=== PATIENT | female | born 1940 | race Caucasian/White ===

== ENCOUNTER → 2017-05-26 | Outpatient (CLI) | payer MEDICARE, OTHER ==
--- NOTE | 2017-05-27 09:29 | MM ---
Reason for exam: screening (asymptomatic). Last mammogram was performed 1 year and 4 months ago. History: Patient is postmenopausal and is nulliparous. Physical Findings: A clinical breast exam by your physician is recommended on an annual basis and results should be correlated with mammographic findings. MG Screening Mammo w CAD Bilateral CC and MLO view(s) were taken. Prior study comparison: January 18, 2015, bilateral MG screening mammo w CAD. October 31, 2013, bilateral MG screening mammo w CAD. October 12, 2012, bilateral digital screening mammo w/CAD. The breast tissue is heterogeneously dense. This may lower the sensitivity of mammography. Finding: There are typically benign round calcifications in the right breast. Previous mammotome biopsy in the left breast. There is no discrete abnormality. ASSESSMENT: Benign, BI-RAD 2 RECOMMENDATION: Routine screening mammogram of both breasts in 1 year.
== END ==
LOC: RADMAMWWP 14:25
PROVIDERS: ATTEND Family Medicine
DX: Z12.31 Encounter for screening mammogram for malignant neoplasm of breast (principal)
CPT/HCPCS: 77067

== ENCOUNTER → 2018-09-09 | Outpatient (CLI) | payer MEDICARE, OTHER ==
--- NOTE | 2018-09-09 19:06 | BD ---
EXAMINATION TYPE: Axial Bone Density DATE OF EXAM: 09/09/2018 COMPARISON: 02.27.2014 CLINICAL HISTORY: 77 YR OLD FEMALE....ICD-10 CODE: M81.0 OSTEOPOROSIS, Z78.0 POST MENOPAUSAL Height: 57 Weight: 94 FRAX RISK QUESTIONS: Glucocorticoids (More than 3mos): FOR ALLERGIES ONLY (Ex: prednisone, prednisolone, methylprednisolone, dexamethasone, and hydrocortisone). Current Tobacco Use: QUIT 10 YRS AGO RISK FACTORS HISTORY OF: HX OF FRACTURES X3....BUT ALL BEFORE THE AGE OF 49 Family History of Osteoporosis: NONE KNOWN Active: YES Postmenopausal woman: 49 YRS OLD HORMONES IN PAST FOR ABOUT 5 YRS....NONE NOW Lost more than 2 inches in height since high school: YES MEDICATIONS: Prednisone or other steroids: FLONASE FOR ALLERGIES FOR MANY YRS Osteoporosis Medications: PROLIA INJECTIONS 2X YEARLY, FOR ABOUT 6 YRS Additional Medications: LIPITOR, DRINK ENSURE FOR VITAMINS Additional History: OSTEOPOROSIS, CHOLESTEROL EXAM MEASUREMENTS: Bone mineral densitometry was performed using the [email or web address] System. Bone mineral density as measured about the Lumbar spine is: ----- L1-L4(G/cm2): 0.852 T Score Values are as follows: ----- L1: -2.8 ----- L2: -3.1 ----- L3: -2.4 ----- L4: -2.8 ----- L1-L4: -2.7 Bone mineral density has: Increased 8.8% since study of: 02.27.2014 Bone mineral density about the R hip (g/cm2): 0.607 Bone mineral density about the L hip (g/cm2): 0.586 T Score values are as follows: -----R Neck: -2.9 -----L Neck: -3.0 -----R Total: -3.2 -----L Total: -3.2 Bone mineral density has: Increased 4.9% since study of: 02.27.2014 FRAX%s: THERE IS A 29.7% CHANCE FOR A MAJOR OSTEOPOROTIC FX AND A 14.2% FOR A HIP.....PROBABILITY OF FX IN 10 YRS TIME IMPRESSION: Osteoporosis (T Score less than -2.5). There is increased fracture risk and therapy is usually indicated based on age. Re-Screen 1-2 years. NOTE: T-SCORE=SD OF THE YOUNG ADULT MEAN.
== END | disposition home or self-care (01) ==
LOC: RADBDWWP 07:11
PROVIDERS: ATTEND Internal Medicine
DX: M81.0 Age-related osteoporosis without current pathological fracture (principal); Z88.0 Allergy status to penicillin
CPT/HCPCS: 77080

== ENCOUNTER → 2018-10-07 | Outpatient (CLI) | payer MEDICARE, OTHER ==
--- NOTE | 2018-10-08 08:54 | MM ---
Reason for exam: screening (asymptomatic). Last mammogram was performed 1 year and 4 months ago. History: Patient is postmenopausal and is nulliparous. Physical Findings: A clinical breast exam by your physician is recommended on an annual basis and results should be correlated with mammographic findings. MG 3D Screening Mammo W/Cad Bilateral CC and MLO view(s) were taken. Prior study comparison: May 26, 2017, bilateral MG screening mammo w CAD. January 30, 2016, bilateral MG 3d screening mammo w/cad. There are scattered fibroglandular densities. There is no discrete abnormality. No significant changes when compared with prior studies. ASSESSMENT: Negative, BI-RAD 1 RECOMMENDATION: Routine screening mammogram of both breasts in 1 year.
== END | disposition home or self-care (01) ==
LOC: RADMAMWWP 16:29
PROVIDERS: ATTEND Family Medicine
DX: Z12.31 Encounter for screening mammogram for malignant neoplasm of breast (principal); Z90.12 Acquired absence of left breast and nipple
CPT/HCPCS: 77063; 77067

== ENCOUNTER → 2020-03-06 | Outpatient (CLI) | payer MEDICARE, OTHER ==
--- NOTE | 2020-03-06 21:01 | US ---
EXAMINATION TYPE: US venous doppler duplex LE RT DATE OF EXAM: 03/06/2020 4:16 PM COMPARISON: NONE CLINICAL HISTORY: M79.661 PAIN RT LOWER LIMB,R22.41 SWELLING RT LOWER LIMB. Leg swelling and pain saray t has decreased since she has been on medication, no h/o DVT SIDE PERFORMED: Right TECHNIQUE: The lower extremity deep venous system is examined utilizing real time linear array sonog cordell with graded compression, doppler sonography and color-flow sonography. VESSELS IMAGED: External Iliac Vein (EIV) Common Femoral Vein Deep Femoral Vein Greater Saphenous Vein * Femoral Vein Popliteal Vein Small Saphenous Vein * Proximal Calf Veins (* superficial vessels) Right Leg: Negative for deep venous thrombosis. There is normal flow, compressibility, vascular wave forms. IMPRESSION: No DVT of the right lower extremity.
== END | disposition home or self-care (01) ==
LOC: RADUSWWP 15:53
PROVIDERS: ATTEND Internal Medicine
DX: M79.661 Pain in right lower leg (principal); R22.41 Localized swelling, mass and lump, right lower limb; Z88.0 Allergy status to penicillin

== ENCOUNTER → 2020-03-16 | Outpatient (CLI) | payer MEDICARE, OTHER ==
--- NOTE | 2020-03-19 08:30 | MM ---
Reason for exam: screening (asymptomatic). Last mammogram was performed 1 year and 5 months ago. History: Patient is postmenopausal and is nulliparous. Physical Findings: A clinical breast exam by your physician is recommended on an annual basis and results should be correlated with mammographic findings. MG 3D Screening Mammo W/Cad Bilateral CC and MLO view(s) were taken. XCCL view(s) were taken of the right breast. Prior study comparison: October 07, 2018, bilateral MG 3d screening mammo w/cad. May 26, 2017, bilateral MG screening mammo w CAD. The breast tissue is heterogeneously dense. This may lower the sensitivity of mammography. Benign appearing calcifications in the right breast. No significant changes when compared with prior studies. ASSESSMENT: Benign, BI-RAD 2 RECOMMENDATION: Routine screening mammogram of both breasts in 1 year.
== END | disposition home or self-care (01) ==
LOC: RADMAMWWP 09:45
PROVIDERS: ATTEND Internal Medicine
DX: Z12.31 Encounter for screening mammogram for malignant neoplasm of breast (principal)
CPT/HCPCS: 77063; 77067

== ENCOUNTER 2020-03-18 12:14 | Inpatient (IN) | payer MEDICARE, OTHER ==
[2020-03-18] MEDS ORDERED: SODIUM CHLORIDE 0.9% 500 ML 500 ML IV STA (12:32)
--- NOTE | 2020-03-18 12:35 | ED ---
General Adult HPI - General Chief complaint: Nausea/Vomiting/Diarrhea Stated complaint: NVD Time Seen by Provider: 03/18/20 12:24 Source: patient, EMS, RN notes reviewed, old records reviewed Mode of arrival: EMS Limitations: no limitations - History of Present Illness Initial comments: 79-year-old female presenting with 2 days of nausea vomiting and diarrhea Patient states her diarrhea is watery yellow in color. No rectal bleeding. No fever. Patient completed antibiotics on Thursday which was 2 days ago for a right lower extremity cellulitis. She states that on Thursday she began having vomiting and diarrhea. She's had greater than 10 episodes of vomiting. She has not been able to eat or drink secondary to nausea vomiting. She denies fever. She denies significant abdominal pain. - Related Data Allergies Allergy/AdvReac Type Severity Reaction Status Date / Time Penicillins Allergy Rash/Hives Verified 03/18/20 12:23 Review of Systems ROS Statement: Those systems with pertinent positive or pertinent negative responses have been documented in the HPI. ROS Other: All systems not noted in ROS Statement are negative. Past Medical History Past Medical History: Hyperlipidemia History of Any Multi-Drug Resistant Organisms: None Reported Past Surgical History: Tonsillectomy Past Psychological History: No Psychological Hx Reported Smoking Status: Never smoker Past Alcohol Use History: Occasional Past Drug Use History: None Reported General Exam Limitations: no limitations General appearance: alert, in no apparent distress Head exam: Present: atraumatic, normocephalic Eye exam: Present: normal appearance, PERRL ENT exam: Present: mucous membranes dry Neck exam: Present: normal inspection. Absent: tenderness, meningismus Respiratory exam: Present: normal lung sounds bilaterally. Absent: respiratory distress, wheezes Cardiovascular Exam: Present: regular rate, normal rhythm GI/Abdominal exam: Present: soft. Absent: distended, tenderness, guarding, rebound Extremities exam: Present: normal inspection, normal capillary refill Neurological exam: Present: alert, oriented X3, CN II-XII intact. Absent: motor sensory deficit Psychiatric exam: Present: normal affect, normal mood Skin exam: Present: warm, dry, intact, other (right lower extremity shows mild erythema, well-healed, no signs of current cellulitis, no induration). Absent: cyanosis, diaphoretic Course Vital Signs 03/18/20 03/18/20 03/18/20 12:17 12:24 14:23 Temperature 97.1 F L 97.3 F L Pulse Rate 65 63 Respiratory 18 16 Rate Blood Pressure 138/94 145/64 O2 Sat by Pulse 98 98 Oximetry EKG Findings - EKG Comments: EKG Findings:: EKG: Sinus bradycardia, rate of 57, ME interval 150, QRS duration 76, QTC [address] segment elevation. T-wave inversion in V2 and V3 Medical Decision Making - Medical Decision Making 79-year-old female with nausea vomiting diarrhea. Ongoing symptoms for 2 days. Workup reveals relatively normal labs, patient is dehydrated, has persistent vomiting and multiple episodes of diarrhea while in the emergency department. She will be admitted for hydration and symptom control. C. difficile toxin is pending. Case discussed with Dr. Pop who will admit. - Lab Data Result diagrams: 03/18/20 12:36 03/18/20 12:36 Lab Results 03/18/20 03/18/20 03/18/20 Range/Units 12:36 12:36 12:56 WBC 3.4 L (3.8-10.6) k/uL RBC 4.77 (3.80-5.40) m/uL Hgb 15.0 (11.4-16.0) gm/dL Hct 47.5 H (34.0-46.0) % MCV 99.5 (80.0-100.0) fL MCH 31.3 (25.0-35.0) pg MCHC 31.5 (31.0-37.0) g/dL RDW 13.1 (11.5-15.5) % Plt Count 120 L (150-450) k/uL Neutrophils % 73 % Lymphocytes % 18 % Monocytes % 6 % Eosinophils % 1 % Basophils % 0 % Neutrophils # 2.5 (1.3-7.7) k/uL Lymphocytes # 0.6 L (1.0-4.8) k/uL Monocytes # 0.2 (0-1.0) k/uL Eosinophils # 0.0 (0-0.7) k/uL Basophils # 0.0 (0-0.2) k/uL Sodium 143 (137-145) mmol/L Potassium 4.2 (3.5-5.1) mmol/L Chloride 109 H (98-107) mmol/L Carbon Dioxide 18 L (22-30) mmol/L Anion Gap 16 mmol/L BUN 47 H (7-17) mg/dL Creatinine 0.85 (0.52-1.04) mg/dL Est GFR (CKD-EPI)AfAm 75 (>60 ml/min/1.73 sqM) Est GFR (CKD-EPI)NonAf 65 (>60 ml/min/1.73 sqM) Glucose 129 H (74-99) mg/dL Calcium 9.6 (8.4-10.2) mg/dL Total Bilirubin 0.4 (0.2-1.3) mg/dL AST 37 H (14-36) U/L ALT 27 (4-34) U/L Alkaline Phosphatase 78 (38-126) U/L Total Protein 7.6 (6.3-8.2) g/dL Albumin 4.8 (3.5-5.0) g/dL Lipase 180 (23-300) U/L Urine Color Yellow Urine Appearance Cloudy H (Clear) Urine pH 5.5 (5.0-8.0) Ur Specific [place] 1.025 (1.001-1.035) Urine Protein 1+ H (Negative) Urine Glucose (UA) Negative (Negative) Urine Ketones Trace H (Negative) Urine Blood Small H (Negative) Urine Nitrite Negative (Negative) Urine Bilirubin Negative (Negative) Urine Urobilinogen <2.0 (<2.0) mg/dL Ur Leukocyte Esterase Negative (Negative) Urine RBC 5 (0-5) /hpf Urine WBC 2 (0-5) /hpf Ur Squamous Epith Cells 1 (0-4) /hpf Amorphous Sediment Few H (None) /hpf Urine Bacteria Rare H (None) /hpf Hyaline Casts 20 H (0-2) /lpf Urine Mucus Rare H (None) /hpf Disposition Clinical Impression: Dehydration, Nausea vomiting and diarrhea Disposition: ADMITTED IP TO THIS [facility] Condition: Stable Is patient prescribed a controlled substance at d/c from ED?: No Referrals: Pedro May MD [Primary Care Provider] - 1-2 days Decision to Admit Reason: Admit from EC Decision Date: 03/18/20 Decision Time: 15:00
[2020-03-18] MEDS ORDERED: METOCLOPRAMIDE 5 MG/ML 2 ML VIAL IVP STA (12:37)
[2020-03-18 13:03] LABS: Albumin 4.8 g/dL (3.5-5.0); Calcium 9.6 mg/dL (8.4-10.2); Potassium 4.2 mmol/L (3.5-5.1); Total Bilirubin 0.4 mg/dL (0.2-1.3); Total Protein 7.6 g/dL (6.3-8.2)
[2020-03-18 13:06] LABS: Basophils % (A) 0 %; Eosinophils % (A) 1 %; HCT 47.5 % (34.0-46.0); Lymphocytes # (A) 0.6 k/uL (1.0-4.8); Lymphocytes % (A) 18 %; MCH 31.3 pg (25.0-35.0); MCHC 31.5 g/dL (31.0-37.0); MCV 99.5 fL (80.0-100.0); Mean Platelet Volume 9.2; Monocytes # (A) 0.2 k/uL (0-1.0); Monocytes % (A) 6 %; Neutrophils # (A) 2.5 k/uL (1.3-7.7); Neutrophils % (A) 73 %; Platelet Count 120 k/uL (150-450); RBC 4.77 m/uL (3.80-5.40); RDW 13.1 % (11.5-15.5); WBC 3.4 k/uL (3.8-10.6)
[2020-03-18 13:15] LABS: Amorphous Sediment,Urine Few /hpf; Appearance,Urine Cloudy (Clear); Bacteria,Urine Rare /hpf; Bilirubin,Urine Negative (Negative); Blood,Urine Small (Negative); Color,Urine Yellow; Glucose,Urine (UA) Negative (Negative); Hyaline Casts,Urine 20 /lpf (0-2); Ketones,Urine Trace (Negative); Leukocyte Esterase,Urine Negative (Negative); Mucus,Urine Rare /hpf; Nitrite,Urine Negative (Negative); PH, Urine 5.5 (5.0-8.0); Protein,Urine 1+ (Negative); RBC,Urine 5 /hpf (0-5); Specific Gravity,Urine 1.025 (1.001-1.035); Squamous Epithelial Cell,Urine 1 /hpf (0-4); Urobilinogen,Urine <2.0 mg/dL (<2.0); WBC,Urine 2 /hpf (0-5)
--- NOTE | 2020-03-18 14:12 | XR ---
EXAMINATION TYPE: XR KUB DATE OF EXAM: 03/18/2020 COMPARISON: None INDICATION: Vomiting TECHNIQUE: Single view abdomen upright view FINDINGS: There is a normal bowel gas pattern. No suspicious air-fluid levels are evident. There is a paucity o f bowel gas present. A 0.6 cm calcification may overlie the right psoas muscle could be a ureteral stone. Psoas margins ap pear normal. No organomegaly is present. IMPRESSION: 1. Clinical consideration for a 0.6 cm proximal right ureteral stone
[2020-03-18] MEDS ORDERED: ONDANSETRON 4 MG/2 ML VIAL IVP PRN (14:55)
[2020-03-18] MEDS ORDERED: NALOXONE 0.4 MG/ML 1 ML VIAL IV PRN (14:55)
[2020-03-18] MEDS: METOCLOPRAMIDE 5 MG/ML 2 ML VIAL IVP SCH (17:48)
[2020-03-18] MEDS: SODIUM CHLORIDE 0.9% 1,000 ML IV SCH (17:49)
[2020-03-19] MEDS: METOCLOPRAMIDE 5 MG/ML 2 ML VIAL IVP SCH ×5 (00:14→23:00)
[2020-03-19] MEDS: SODIUM CHLORIDE 0.9% 1,000 ML IV SCH ×4 (00:15→23:00)
[2020-03-19 08:19] LABS: HCT 41.7 % (34.0-46.0); HGB 13.3 gm/dL (11.4-16.0); MCH 31.9 pg (25.0-35.0); MCHC 31.8 g/dL (31.0-37.0); MCV 100.2 fL (80.0-100.0); Mean Platelet Volume 9.2; Platelet Count 101 k/uL (150-450); RBC 4.16 m/uL (3.80-5.40); RDW 13.2 % (11.5-15.5); WBC 2.4 k/uL (3.8-10.6)
[2020-03-19 08:40] LABS: ALT 27 U/L (4-34); AST 41 U/L (14-36); African American GFR (CKD) >90 (>60 ml/min/1.73 sqM); Albumin 3.7 g/dL (3.5-5.0); Alkaline Phosphatase 59 U/L (38-126); Anion Gap 7 mmol/L; Blood Urea Nitrogen 34 mg/dL (7-17); Calcium 7.8 mg/dL (8.4-10.2); Carbon Dioxide 21 mmol/L (22-30); Chloride 113 mmol/L (98-107); Glucose 97 mg/dL (74-99); Magnesium 2.1 mg/dL (1.6-2.3); Non-African American GFR(CKD) 85 (>60 ml/min/1.73 sqM); Potassium 3.7 mmol/L (3.5-5.1); Sodium 141 mmol/L (137-145); Total Bilirubin 0.5 mg/dL (0.2-1.3); Total Protein 6.1 g/dL (6.3-8.2)
[2020-03-19 09:44] LABS: Band Neutrophils % 4 %; Lymphocytes # (M) 0.67 k/uL (1.0-4.8); Monocytes # (M) 0.19 k/uL (0-1.0); Neutrophils % (M) 60 %; Nucleated Red Blood Cells 0 /100 WBC (0-0); Total Cells Counted 100
[2020-03-19 09:45] LABS: Poikilocytosis (M) Present
[2020-03-19 13:03] VITALS: BMI 18.6
--- NOTE | 2020-03-19 17:24 | P.HPIM ---
History of Present Illness H&P Date: 03/19/20 Chief Complaint: Nausea vomiting and diarrhea for 2 days Ms. Blancas is a 79-year-old female with a past medical history of hyperlipidemia coming into the hospital with a chief complaint of nausea, vomiting and diarrhea for the past 2 days. Patient states that she was recently on an antibiotic for the past 10 days and just completed her course on Thursday. She is not sure about which antibiotics she was on, it was given for her right lower extremity cellulitis. Patient started to have nausea with 10 episodes of vomiting. Nonbloody in nature. Later on she started to have diarrhea 6-8 episodes. She denies having any blood or mucus in her stools. Patient denied having any abdominal pain. She denies having any fevers chills or rigors. Patient denied having any sick contacts. No recent travel. The only positive history is that she was on an antibiotic for her lower extremity cellulitis. Patient denied having any chest pain or palpitations. No cough or difficulty in breathing. No orthopnea or PND. No lower extremity swelling. She states that her cellulitis has resolved since completing her antibiotic. In the emergency room patient had an abdominal x-ray showing 0.6 cm proximal right ureteral stone and EKG showing sinus bradycardia. She had labs done showing white count of 2.4 hemoglobin 13.3, platelets 101. Sodium 141, potassium 3.7, chloride 113, bicarbonate 21, bili and 34, creatinine 0.60. C. diff has been negative. Review of Systems REVIEW OF SYSTEMS: PSYCH: No anxiety or depression NEURO:No c/o weakness of the extremties, No facial droop, No speech abnormalities. VASCULAR: Peripheral nervous system within the normal limits no edema HEMATOLOGIC: No history of easy bleeding and bruising . No recent infections . RESPIRATORY: No cough, No SOB, No chest discomfort. 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 GI: As per HPI Past Medical History Past Medical History: Hyperlipidemia History of Any Multi-Drug Resistant Organisms: None Reported Past Surgical History: Tonsillectomy Past Psychological History: No Psychological Hx Reported Smoking Status: Former smoker Past Alcohol Use History: Occasional Past Drug Use History: None Reported Medications and Allergies Home Medications Medication Instructions Recorded Confirmed Type Acetaminophen-Codeine 300-30mg 1 tab PO QID PRN 03/18/20 03/18/20 History [Tylenol w/codeine #3] Atorvastatin Calcium [Lipitor] 80 mg PO HS 03/18/20 03/18/20 History Butalbital/Aspirin/Caffeine 1 cap PO DAILY PRN 03/18/20 03/18/20 History [Vdrbrizhhz-RYE-Gydvossi Cap 50-325-40] Denosumab [Prolia] 60 mg INJ Q180D 03/18/20 03/18/20 History Ferrous Sulfate [Iron (65 MG 325 mg PO DAILY 03/18/20 03/18/20 History Elemental)] Ibuprofen [Motrin] 400 mg PO BID PRN 03/18/20 03/18/20 History Montelukast Sodium [Singulair] 10 mg PO HS 03/18/20 03/18/20 History Olopatadine HCl [Patanol] 1 drop BOTH EYES DAILY PRN 03/18/20 03/18/20 History Allergies Allergy/AdvReac Type Severity Reaction Status Date / Time Penicillins Allergy Rash/Hives Verified 03/18/20 16:14 Physical Exam Vitals: Vital Signs Temp Pulse Pulse Resp BP BP Pulse Ox 03/19/20 08:07 98.3 F 64 14 124/60 98 03/19/20 03:00 98.7 F 67 17 104/59 98 03/18/20 21:00 97.6 F 95 18 130/73 95 03/18/20 18:04 16 03/18/20 16:52 97.5 F L 55 L 18 148/65 98 03/18/20 16:32 72 16 151/69 98 03/18/20 15:00 18 146/64 98 03/18/20 14:23 97.3 F L 63 16 145/64 98 Intake and Output 03/18/20 03/19/20 03/19/20 22:59 06:59 14:59 Intake Total 1600 Balance 1600 Intake: Intake, IV Titration 1600 Amount Sodium Chloride 0.9% 1, 1600 000 ml @ 100 mls/hr IV . Q10H DC Rx#:[id number] Other: Voiding Method Toilet Toilet Toilet # Voids 2 4 Weight 41.73 kg PHYSICAL EXAM GEN. APPEARANCE: alert, in no apparent distress HEAD EXAM: atraumatic, normocephalic, normal inspection EYE EXAM: No pallor. No distress. ENT EXAM: Oral mucosa is dry NECK EXAM: No JVD, no lymphadenopathy RESPIRATORY EXAM: Bilateral breath sounds are positive. No wheeze or crackles. CARDIOVASCULAR EXAM: S1 and S2 heard. No additional sounds GI/ABDOMINAL EXAM: soft, normal bowel sounds. Nondistended. Nontender. No guarding or rigidity. EXTREMITIES EXAM: No pedal edema. NEUROLOGICAL EXAM: alert, oriented X3, no focal deficits on gross exam PSYCHIATRIC EXAM: normal affect, normal mood SKIN EXAM: no Rash Results CBC & Chem 7: 03/19/20 07:21 03/19/20 07:21 Labs: Abnormal Lab Results - Last 24 Hours (Table) 03/18/20 03/18/20 03/18/20 Range/Units 12:36 12:36 12:56 WBC 3.4 L (3.8-10.6) k/uL Hct 47.5 H (34.0-46.0) % MCV (80.0-100.0) fL Plt Count 120 L (150-450) k/uL Lymphocytes # 0.6 L (1.0-4.8) k/uL Lymphocytes # (Manual) (1.0-4.8) k/uL Chloride 109 H (98-107) mmol/L Carbon Dioxide 18 L (22-30) mmol/L BUN 47 H (7-17) mg/dL Glucose 129 H (74-99) mg/dL Calcium (8.4-10.2) mg/dL AST 37 H (14-36) U/L Total Protein (6.3-8.2) g/dL Urine Appearance Cloudy H (Clear) Urine Protein 1+ H (Negative) Urine Ketones Trace H (Negative) Urine Blood Small H (Negative) Amorphous Sediment Few H (None) /hpf Urine Bacteria Rare H (None) /hpf Hyaline Casts 20 H (0-2) /lpf Urine Mucus Rare H (None) /hpf 03/19/20 03/19/20 Range/Units 07:21 07:21 WBC 2.4 L (3.8-10.6) k/uL Hct (34.0-46.0) % MCV 100.2 H (80.0-100.0) fL Plt Count 101 L (150-450) k/uL Lymphocytes # (1.0-4.8) k/uL Lymphocytes # (Manual) 0.67 L (1.0-4.8) k/uL Chloride 113 H (98-107) mmol/L Carbon Dioxide 21 L (22-30) mmol/L BUN 34 H (7-17) mg/dL Glucose (74-99) mg/dL Calcium 7.8 L (8.4-10.2) mg/dL AST 41 H (14-36) U/L Total Protein 6.1 L (6.3-8.2) g/dL Urine Appearance (Clear) Urine Protein (Negative) Urine Ketones (Negative) Urine Blood (Negative) Amorphous Sediment (None) /hpf Urine Bacteria (None) /hpf Hyaline Casts (0-2) /lpf Urine Mucus (None) /hpf Thrombosis Risk Factor Assmnt - Choose All That Apply Any of the Below Risk Factors Present?: No Other Risk Factors: Yes Each Risk Factor Represents 3 Points: Age 75 years or older Thrombosis Risk Factor Assessment Total Risk Factor Score: 3 Thrombosis Risk Factor Assessment Level: Moderate Risk Assessment and Plan Assessment: ASSESSMENT Nausea vomiting and diarrhea- could be related to her recent antibiotic use- C. diff has been negative Leukopenia Thrombocytopenia PLAN: Continue with supportive management, IV fluids, antiemetics. Patient's C. diff is negative, her symptoms could be related to recent antibiotic use. For her bicytopenia she needs outpatient follow-up. Discussed the treatment plan in detail with the patient at bedside. Will repeat a.m. labs. Further recommendations to follow depending on the progress of the patient.
[2020-03-19] MEDS ORDERED: ASPIRIN PO PRN (23:01)
[2020-03-19] MEDS ORDERED: CAFFEINE PO PRN (23:01)
[2020-03-19] MEDS ORDERED: BUTALBITAL PO PRN (23:01)
[2020-03-19] MEDS ORDERED: KETOTIFEN 0.025% OPHTH DROPS 5 ML BTL BOTH EYES PRN (23:01)
[2020-03-20] MEDS: ACETAMINOPHEN TAB 325 MG TAB PO PRN ×2 (02:08→20:13)
[2020-03-20] MEDS: METOCLOPRAMIDE 5 MG/ML 2 ML VIAL IVP SCH ×2 (05:18→11:26)
[2020-03-20] MEDS: FERROUS SULFATE 325 MG TAB PO SCH (08:03)
[2020-03-20 08:49] LABS: Basophils % (A) 0 %; Eosinophils % (A) 1 %; HCT 41.6 % (34.0-46.0); HGB 13.3 gm/dL (11.4-16.0); Lymphocytes # (A) 0.7 k/uL (1.0-4.8); Lymphocytes % (A) 25 %; Mean Platelet Volume 9.5; Monocytes # (A) 0.2 k/uL (0-1.0); Monocytes % (A) 9 %; Neutrophils # (A) 1.7 k/uL (1.3-7.7); Neutrophils % (A) 62 %; RBC 4.16 m/uL (3.80-5.40); RDW 13.3 % (11.5-15.5); WBC 2.7 k/uL (3.8-10.6)
[2020-03-20 08:57] LABS: African American GFR (CKD) >90 (>60 ml/min/1.73 sqM); Anion Gap 7 mmol/L; Blood Urea Nitrogen 19 mg/dL (7-17); Calcium 7.3 mg/dL (8.4-10.2); Carbon Dioxide 22 mmol/L (22-30); Chloride 110 mmol/L (98-107); Glucose 86 mg/dL (74-99); Magnesium 2.1 mg/dL (1.6-2.3); Non-African American GFR(CKD) >90 (>60 ml/min/1.73 sqM); Potassium 3.3 mmol/L (3.5-5.1); Sodium 139 mmol/L (137-145)
[2020-03-20 10:45] LABS: Platelet Count 77 k/uL (150-450)
[2020-03-20 14:44] LABS: Appearance,Urine Clear (Clear); Bilirubin,Urine Negative (Negative); Blood,Urine Small (Negative); Color,Urine Yellow; Glucose,Urine (UA) Negative (Negative); Ketones,Urine 2+ (Negative); Leukocyte Esterase,Urine Negative (Negative); Mucus,Urine Rare /hpf; Nitrite,Urine Negative (Negative); Protein,Urine Trace (Negative); RBC,Urine 4 /hpf (0-5); Specific Gravity,Urine 1.018 (1.001-1.035); Urobilinogen,Urine <2.0 mg/dL (<2.0); WBC,Urine 1 /hpf (0-5)
[2020-03-20] MEDS ORDERED: METOCLOPRAMIDE 5 MG/ML 2 ML VIAL IVP PRN (15:05)
[2020-03-20] MEDS: SODIUM CHLORIDE 0.9% 1,000 ML IV SCH (17:38)
[2020-03-20] MEDS: LOPERAMIDE 2 MG CAP PO PRN (17:38)
--- NOTE | 2020-03-20 19:16 | P.PN ---
Subjective Ms. Blancas is a 79-year-old female with a past medical history of hyperlipidemia coming into the hospital with a chief complaint of nausea, vomiting and diarrhea for 2 days. Patient states that she was recently on an antibiotic for the past 10 days and just completed her course on Thursday. it was given for her right lower extremity cellulitis. C. diff was checked and was negative. Patient is treated symptomatically. Today her nausea vomiting is better, no abdominal pain however she still have loose bowel movement, she has 3 bouts of diarrhea yesterday and another 3 bowel movement this morning. She still feels generally weak and she does not feel ready to go home because of her weakness Discussed the case with these volunteer services manager, also discussed the case with the staff and GI team. We going to continue with IV fluids, start the Imodium, change Reglan 2 as needed. And also ask for PT/OT evaluation vitals and labs reviewed and it looks stable, however she has leukopenia Objective - Vital Signs Vital signs: Vital Signs Temp 98.5 F 03/20/20 14:27 Pulse 60 03/20/20 14:27 Resp 14 03/20/20 14:27 BP 137/64 03/20/20 14:27 Pulse Ox 96 03/20/20 14:27 Intake & Output 03/19/20 03/20/20 03/20/20 18:59 06:59 18:59 Weight 41.73 kg Other: Voiding Method Toilet Toilet Toilet # Voids 3 1 # Bowel Movements 3 1 2 - Labs CBC & Chem 7: 03/20/20 07:23 03/20/20 07:23 Labs: Abnormal Lab Results - Last 24 Hours (Table) 03/20/20 03/20/20 03/20/20 Range/Units 07:23 07:23 13:40 WBC 2.7 L (3.8-10.6) k/uL Plt Count 77 L (150-450) k/uL Lymphocytes # 0.7 L (1.0-4.8) k/uL Potassium 3.3 L (3.5-5.1) mmol/L Chloride 110 H (98-107) mmol/L BUN 19 H (7-17) mg/dL Calcium 7.3 L (8.4-10.2) mg/dL Urine Protein Trace H (Negative) Urine Ketones 2+ H (Negative) Urine Blood Small H (Negative) Urine Mucus Rare H (None) /hpf Assessment and Plan Assessment: Possible gastroenteritis, could be viral. Check for covid Dehydration Generalized weakness Leukopenia and thrombocytopenia 0.6 cm proximal right ureteral stone, asymptomatic. Urinalysis is negative for infection 2 Plan: This is a pleasant 79 years old female who presents with dehydration and gastroenteritis. Check for Covid, continue with IV fluid, and ask for physical therapy evaluation. We'll check for B12. Follow-up recommendation by GI team were consulted. Switch the patient from observation. Patient as she still needs treatment, test and IV fluid Labs and medication were reviewed.. Continue same treatment. Continue with symptomatic treatment. Resume home medication. Monitor lytes and vitals. DVT and GI prophylaxis. Further recommendationsas per clinical course of the patient DVT prophylaxis: Subcutaneous heparin GI Prophylaxis: Pepcid PT/OT: Pending Prognosis is guarded
[2020-03-20] MEDS: HEPARIN SODIUM,PORCINE 5,000 UNIT/ML 1 ML VIAL SQ SCH (20:13)
[2020-03-20] MEDS: MONTELUKAST 10 MG TAB PO SCH (20:13)
[2020-03-20] MEDS: FAMOTIDINE 20 MG/2 ML VIAL IV SCH (20:13)
[2020-03-20] MEDS: ATORVASTATIN 80 MG TAB PO SCH (20:13)
[2020-03-21] MEDS: ACETAMINOPHEN TAB 325 MG TAB PO PRN ×3 (03:41→17:48)
[2020-03-21] MEDS: LOPERAMIDE 2 MG CAP PO PRN ×3 (03:41→19:58)
[2020-03-21] MEDS: SODIUM CHLORIDE 0.9% 1,000 ML IV SCH ×2 (03:43→19:58)
--- NOTE | 2020-03-21 06:41 | P.CONS ---
History of Present Illness - Reason for Consult Consult date: 03/20/20 Diarrhea Requesting physician: Fantasma E Sheet - Chief Complaint Nausea, vomiting, diarrhea - History of Present Illness 79-year-old female with a past medical history of hyperlipidemia and recent antibiotic therapy for treatment of lower extremity cellulitis who presented to the hospital with symptoms of nausea, vomiting and diarrhea. The patient reports that she recently completed a course of antibiotic treatment. Subsequently she developed symptoms of intractable nausea and vomiting reporting over 10 episodes of nonbloody nonbilious emesis. She also reports 6-8 episodes of loose watery bowel movements prior to presentation. She reports 3 bowel movements today. She denies any associated abdominal pain or blood per rectum. No sick contacts but she does report chills with no fevers at home. She reports her last testing was with Cologuard 5 years ago and was negative. X-ray of the abdomen negative for any acute intra-abdominal process with right ureteral stone seen. Labs on presentation significant for WBC 2.7, hemoglobin 13.3, platelet count 77,000 with total bilirubin 0.5, alkaline phosphatase 61, AST 41 and ALT 27. Review of Systems REVIEW OF SYSTEMS: CONSTITUTIONAL: Denies any fevers, , weight change but the patient had been having chills. CARDIOVASCULAR: Denies any chest pain, palpitations high or low blood pressures RESPIRATORY: Denies any shortness of breath, hemoptysis or cough. GENITOURINARY: No dysuria or hematuria. MUSCULOSKELETAL: No weakness reported. SKIN: Denies any new rashes or lesions, jaundice or pallor, recent antibiotics for cellulitis. PSYCHIATRIC: Denies any depression or anxiety. NEUROLOGY: Denies headache, denies any new focal deficits. EARS/NOSE/THROAT: No recent hearing change, congestion, nasal discharge or sore throat. EYES: No pain in eyes, discharge or change in vision. GASTROINTESTINAL: As per HPI. Past Medical History Past Medical History: Hyperlipidemia History of Any Multi-Drug Resistant Organisms: None Reported Past Surgical History: Tonsillectomy Past Psychological History: No Psychological Hx Reported Smoking Status: Former smoker Past Alcohol Use History: Occasional Past Drug Use History: None Reported Additional History: Family History: Reviewed and non contributory to medical presentation. Medications and Allergies Home Medications Medication Instructions Recorded Confirmed Type Acetaminophen-Codeine 300-30mg 1 tab PO QID PRN 03/18/20 03/18/20 History [Tylenol w/codeine #3] Atorvastatin Calcium [Lipitor] 80 mg PO HS 03/18/20 03/18/20 History Butalbital/Aspirin/Caffeine 1 cap PO DAILY PRN 03/18/20 03/18/20 History [Urufurqfai-EZY-Jozkiqqy Cap 50-325-40] Denosumab [Prolia] 60 mg INJ Q180D 03/18/20 03/18/20 History Ferrous Sulfate [Iron (65 MG 325 mg PO DAILY 03/18/20 03/18/20 History Elemental)] Ibuprofen [Motrin] 400 mg PO BID PRN 03/18/20 03/18/20 History Montelukast Sodium [Singulair] 10 mg PO HS 03/18/20 03/18/20 History Olopatadine HCl [Patanol] 1 drop BOTH EYES DAILY PRN 03/18/20 03/18/20 History Allergies Allergy/AdvReac Type Severity Reaction Status Date / Time Penicillins Allergy Rash/Hives Verified 03/18/20 16:14 Physical Exam Vitals: Vital Signs Temp Pulse Resp BP Pulse Ox 03/20/20 07:55 98.1 F 57 L 14 132/61 97 03/20/20 02:16 97.9 F 60 16 114/72 96 03/19/20 19:46 98.1 F 56 L 16 124/73 97 03/19/20 14:47 98.8 F 58 L 14 107/57 97 Intake and Output 03/19/20 03/20/20 03/20/20 22:59 06:59 14:59 Other: Voiding Method Toilet Toilet # Voids 1 # Bowel Movements 1 2 On physical examination, patient appears comfortable in no apparent distress. HEAD: Normocephalic, atraumatic. EYES: No scleral icterus. No conjunctival injection. MOUTH: No lesions, tongue midline. NECK: Trachea midline, no gross abnormalities. CHEST: Clear to auscultation with no wheezing or rhonchi appreciated. HEART: S1-S2 appreciated. ABDOMEN: Soft, non tender. Bowel sounds are positive. No organomegaly. No guard ing or rigidity. EXTREMITIES: No rashes, pallor or jaundice noted. SKIN: No rashes, no jaundice. NEUROLOGIC: Alert and oriented x3. No focal deficits. Results CBC & Chem 7: 03/20/20 07:23 11/03/20 07:23 Labs: Abnormal Lab Results - Last 24 Hours (Table) 03/20/20 03/20/20 Range/Units 07:23 07:23 WBC 2.7 L (3.8-10.6) k/uL Plt Count 77 L (150-450) k/uL Lymphocytes # 0.7 L (1.0-4.8) k/uL Potassium 3.3 L (3.5-5.1) mmol/L Chloride 110 H (98-107) mmol/L BUN 19 H (7-17) mg/dL Calcium 7.3 L (8.4-10.2) mg/dL Abdominal x-ray: report reviewed (No acute intrabdominal process on Xray of the abdomen) Assessment and Plan (1) Nausea vomiting and diarrhea Narrative/Plan: 79-year-old female who presented to the hospital after development of nausea, vomiting and diarrhea occurring for a few days prior to presentation. No similar episodes. She denies any fevers but does report chills. No sick contacts or abnormal foods reported but the patient was recently on antibiotics for treatment of a cellulitis. She reports multiple episodes of nonbloody nonbilious emesis with associated loose frequent watery bowel movements. No abdominal pain reported. X-ray of the abdomen negative for any acute intra- abdominal process. Unclear etiology, suspicion is for acute bacterial or viral gastroenteritis with differential also including functional bowel disorder, or other etiology. Current Visit: Yes Status: Acute Code(s): R11.2 - NAUSEA WITH VOMITING, UNSPECIFIED; R19.7 - DIARRHEA, UNSPECIFIED SNOMED Code(s): 3283542 Plan: Supportive care Okay for diet as tolerated Stool studies ordered Reglan changed to as needed Continue Zofran as needed for nausea Okay for loperamide as needed for loose bowel movements Continue to monitor labs and symptomatically Thank you for allowing us to participate in the care of the patient
[2020-03-21 08:13] LABS: African American GFR (CKD) >90 (>60 ml/min/1.73 sqM); Anion Gap 7 mmol/L; Blood Urea Nitrogen 13 mg/dL (7-17); Calcium 6.9 mg/dL (8.4-10.2); Carbon Dioxide 21 mmol/L (22-30); Chloride 108 mmol/L (98-107); Glucose 91 mg/dL (74-99); Magnesium 1.9 mg/dL (1.6-2.3); Non-African American GFR(CKD) >90 (>60 ml/min/1.73 sqM); Sodium 136 mmol/L (137-145)
[2020-03-21 08:29] LABS: HCT 40.3 % (34.0-46.0); HGB 13.2 gm/dL (11.4-16.0); MCH 32.5 pg (25.0-35.0); MCHC 32.9 g/dL (31.0-37.0); MCV 98.8 fL (80.0-100.0); Mean Platelet Volume 9.6; Platelet Count 57 k/uL (150-450); RBC 4.07 m/uL (3.80-5.40); RDW 12.4 % (11.5-15.5); WBC 1.7 k/uL (3.8-10.6)
[2020-03-21] MEDS: FAMOTIDINE 20 MG/2 ML VIAL IV SCH (08:35)
[2020-03-21] MEDS: HEPARIN SODIUM,PORCINE 5,000 UNIT/ML 1 ML VIAL SQ SCH ×2 (08:35→19:58)
[2020-03-21] MEDS: FERROUS SULFATE 325 MG TAB PO SCH (08:35)
[2020-03-21] MEDS ORDERED: CHOLESTYRAMINE (WITH SUGAR) 4 GM PACKET PO PRN (10:15)
[2020-03-21] MEDS ORDERED: POTASSIUM CHLORIDE ER 20 MEQ TAB.ER PO STA (10:38)
[2020-03-21 10:44] LABS: Band Neutrophils % 3 %; Lymphocytes # (M) 0.66 k/uL (1.0-4.8); Monocytes # (M) 0.22 k/uL (0-1.0); Neutrophils % (M) 45 %; Nucleated Red Blood Cells 0 /100 WBC (0-0); Total Cells Counted 100
[2020-03-21 10:45] LABS: Anisocytosis (M) Present
[2020-03-21] MEDS: CHOLESTYRAMINE (WITH SUGAR) 4 GM PACKET PO SCH ×2 (10:47→16:56)
--- NOTE | 2020-03-21 11:52 | P.PN ---
Subjective Progress Note Date: 03/21/20 Principal diagnosis: Nausea, vomiting, diarrhea She was seen and examined at the bedside. She states nausea vomiting has improved. She is still having loose watery bowel movements, states she had 3 this morning. She denies any fever or body aches. She is tolerating a regular diet, however has a decreased appetite. Objective - Vital Signs Vital signs: Vital Signs Temp 98.9 F 03/21/20 08:40 Pulse 58 L 03/21/20 08:40 Resp 14 03/21/20 08:40 BP 133/61 03/21/20 08:40 Pulse Ox 97 03/21/20 08:40 Intake & Output 03/20/20 03/21/20 03/21/20 18:59 06:59 18:59 Intake Total 115 Balance 115 Intake: Oral 115 Other: Voiding Method Toilet Toilet Toilet # Voids 2 # Bowel Movements 2 2 - Exam General appearance: The patient is alert, oriented, in no acute distress. HET: Head is normocephalic and atraumatic. Conjunctiva pink. Sclera anicteric. Neck: Supple without lymphadenopathy. Abdomen: Soft, nontender, nondistended with bowel sounds. No guarding or rigidity. Extremities: Normal skin color and turgor. No pedal edema Neurological: No focal deficits. Alert and oriented 3. - Labs CBC & Chem 7: 03/21/20 07:37 03/21/20 07:37 Labs: Abnormal Lab Results - Last 24 Hours (Table) 03/20/20 03/21/20 03/21/20 Range/Units 13:40 07:37 07:37 WBC 1.7 L (3.8-10.6) k/uL Plt Count 57 L (150-450) k/uL Neutrophils # (Manual) 0.80 L (1.3-7.7) k/uL Lymphocytes # (Manual) 0.66 L (1.0-4.8) k/uL Sodium 136 L (137-145) mmol/L Potassium 3.0 L (3.5-5.1) mmol/L Chloride 108 H (98-107) mmol/L Carbon Dioxide 21 L (22-30) mmol/L Creatinine 0.46 L (0.52-1.04) mg/dL Calcium 6.9 L (8.4-10.2) mg/dL Urine Protein Trace H (Negative) Urine Ketones 2+ H (Negative) Urine Blood Small H (Negative) Urine Mucus Rare H (None) /hpf Microbiology - Last 24 Hours (Table) 03/20/20 17:20 Stool Culture - Preliminary Stool Assessment and Plan (1) Nausea vomiting and diarrhea Narrative/Plan: 79-year-old female who presented to the hospital after development of nausea, vomiting and diarrhea occurring for a few days prior to presentation. No similar episodes. She denies any fevers but does report chills. No sick contacts or abnormal foods reported but the patient was recently on antibiotics for treatment of a cellulitis. She reports multiple episodes of nonbloody nonbilious emesis with associated loose frequent watery bowel movements. No abdominal pain reported. X-ray of the abdomen negative for any acute intra- abdominal process. Unclear etiology, suspicion is for acute bacterial or viral gastroenteritis with differential also including functional bowel disorder, or other etiology. Coronavirus PCR testing is pending Current Visit: Yes Status: Acute Code(s): R11.2 - NAUSEA WITH VOMITING, UNSPECIFIED; R19.7 - DIARRHEA, UNSPECIFIED SNOMED Code(s): 1405258 Plan: Supportive care Okay for diet as tolerated Stool studies ordered on the Clostridium difficile toxin negative, others pending Reglan changed to as needed Continue Zofran as needed for nausea Okay for loperamide as needed for loose bowel movements Questran changed to scheduled twice a day Continue to monitor labs and symptomatically Consider consult to hematology for leukopenia and thrombocytopenia if worsening Thank you for allowing us to participate in the care of the patient The impression and plan of care has been dictated as directed. I performed a history and examination of this patient, discussed the same with the dictator. I agree with the dictator's note ,documented as a scribe. Any additional findings or plans will be noted.
--- NOTE | 2020-03-21 17:20 | P.PN ---
Subjective Ms. Blancas is a 79-year-old female with a past medical history of hyperlipidemia coming into the hospital with a chief complaint of nausea, vomiting and diarrhea for 2 days. Patient states that she was recently on an antibiotic for the past 10 days and just completed her course on Thursday. it was given for her right lower extremity cellulitis. C. diff was checked and was negative. Patient is treated symptomatically. Today her nausea vomiting is better, no abdominal pain however she still have loose bowel movement, she has 3 bouts of diarrhea yesterday and another 3 bowel movement this morning. She still feels generally weak and she does not feel ready to go home because of her weakness Discussed the case with these manager investment banking, also discussed the case with the staff and GI team. We going to continue with IV fluids, start the Imodium, change Reglan 2 as needed. And also ask for PT/OT evaluation vitals and labs reviewed and it looks stable, however she has leukopenia 03/21/2020 Patient still have loose bowel movement, she has 3 bouts of diarrhea this morning. However she denies all other symptoms, no nausea vomiting, no abdomin al pain and she tolerate some diet Patient WBCs trending down to 1.7, also patient states is down to 50 7K, hemoglobin is stable. B12 is actually high at 1143. Stool studies showing negative stool lactoferrin and negative cryptosporidium antigen and Giardia antigen. [id number] is normal at 0.06. Patient is not on antibiotic and she is still on IV fluids AND 75 ML/H. PATIENT IS FOLLOWED CLOSELY BY GI TEAM. FLOW ACROSS THE HEMATOLOGY CONSULT IF NO IMPROVEMENT OR WORSENING OF HER blood cells per meters Objective - Vital Signs Vital signs: Vital Signs Temp 98.9 F 03/21/20 15:00 Pulse 59 L 03/21/20 15:00 Resp 14 03/21/20 15:00 BP 173/77 03/21/20 15:00 Pulse Ox 97 03/21/20 15:00 Intake & Output 03/20/20 03/21/20 03/21/20 18:59 06:59 18:59 Intake Total 115 Balance 115 Intake: Oral 115 Other: Voiding Method Toilet Toilet Toilet # Voids 2 2 # Bowel Movements 2 2 - Exam GENERAL: The patient is alert and oriented x3, not in any acute distress. Well developed, well nourished. HEENT: Pupils are round and equally reacting to light. EOMI. No scleral icterus. No conjunctival pallor. Normocephalic, atraumatic. No pharyngeal erythema. No thyromegaly. CARDIOVASCULAR: S1 and S2 present. No murmurs, rubs, or gallops. PULMONARY: Chest is clear to auscultation, no wheezing or crackles. ABDOMEN: Soft, nontender, nondistended, normoactive bowel sounds. No palpable organomegaly. MUSCULOSKELETAL: No joint swelling or deformity. EXTREMITIES: No cyanosis, clubbing, or pedal edema. NEUROLOGICAL: Gross neurological examination did not reveal any focal deficits. SKIN: No rashes. no petechiae. - Labs CBC & Chem 7: 03/21/20 07:37 03/21/20 07:37 Labs: Abnormal Lab Results - Last 24 Hours (Table) 03/21/20 03/21/20 Range/Units 07:37 07:37 WBC 1.7 L (3.8-10.6) k/uL Plt Count 57 L (150-450) k/uL Neutrophils # (Manual) 0.80 L (1.3-7.7) k/uL Lymphocytes # (Manual) 0.66 L (1.0-4.8) k/uL Sodium 136 L (137-145) mmol/L Potassium 3.0 L (3.5-5.1) mmol/L Chloride 108 H (98-107) mmol/L Carbon Dioxide 21 L (22-30) mmol/L Creatinine 0.46 L (0.52-1.04) mg/dL Calcium 6.9 L (8.4-10.2) mg/dL Microbiology - Last 24 Hours (Table) 03/20/20 17:20 Stool Culture - Preliminary Stool Assessment and Plan Assessment: Acute gastroenteritis, mostly viral infection. Dehydration Generalized weakness Leukopenia and thrombocytopenia 0.6 cm proximal right ureteral stone, asymptomatic. Urinalysis is negative for infection 2 Plan: This is a pleasant 79 years old female who presents with dehydration and gastroenteritis. continue with IV fluid, and ask for physical therapy evaluation. Follow-up recommendation by GI team were consulted. Patient as she still needs treatment, test and IV fluid Labs and medication were reviewed.. Continue same treatment. Continue with symptomatic treatment. Resume home medication. Monitor lytes and vitals. DVT and GI prophylaxis. Further recommendationsas per clinical course of the patient DVT prophylaxis: Subcutaneous heparin GI Prophylaxis: Pepcid PT/OT: Pending Prognosis is guarded
[2020-03-21] MEDS ORDERED: MAGNESIUM SULFATE-D5W PMX 1 GM in DEXTROSE/WATER 1 100ML.BAG IVPB ONE (17:22)
[2020-03-21] MEDS: ATORVASTATIN 80 MG TAB PO SCH (19:57)
[2020-03-21] MEDS: MONTELUKAST 10 MG TAB PO SCH (19:57)
[2020-03-21] MEDS: FAMOTIDINE 20 MG TAB PO SCH (19:57)
[2020-03-22 10:41] LABS: African American GFR (CKD) >90 (>60 ml/min/1.73 sqM); Anion Gap 6 mmol/L; Blood Urea Nitrogen 11 mg/dL (7-17); Calcium 7.1 mg/dL (8.4-10.2); Carbon Dioxide 23 mmol/L (22-30); Chloride 104 mmol/L (98-107); Glucose 134 mg/dL (74-99); Magnesium 1.8 mg/dL (1.6-2.3); Non-African American GFR(CKD) >90 (>60 ml/min/1.73 sqM); Sodium 133 mmol/L (137-145)
[2020-03-22 10:45] LABS: HCT 42.9 % (34.0-46.0); HGB 13.8 gm/dL (11.4-16.0); MCH 31.3 pg (25.0-35.0); MCHC 32.2 g/dL (31.0-37.0); Mean Platelet Volume 10.2; RBC 4.43 m/uL (3.80-5.40); RDW 12.6 % (11.5-15.5)
[2020-03-22 10:51] LABS: Potassium 2.6 mmol/L (3.5-5.1)
[2020-03-22] MEDS: FAMOTIDINE 20 MG TAB PO SCH ×2 (10:52→20:32)
[2020-03-22] MEDS: CHOLESTYRAMINE (WITH SUGAR) 4 GM PACKET PO SCH ×2 (10:52→18:38)
[2020-03-22] MEDS: FERROUS SULFATE 325 MG TAB PO SCH (10:52)
[2020-03-22] MEDS: HEPARIN SODIUM,PORCINE 5,000 UNIT/ML 1 ML VIAL SQ SCH ×2 (10:52→20:32)
[2020-03-22] MEDS: SODIUM CHLORIDE 0.9% 1,000 ML IV SCH ×2 (10:53→20:32)
[2020-03-22] MEDS: LOPERAMIDE 2 MG CAP PO PRN (10:55)
[2020-03-22 11:25] LABS: Platelet Count 68 k/uL (150-450)
[2020-03-22] MEDS ORDERED: Potassium Replacement Protocol 1 EACH MISC MISCELLANE PRN ×2 (11:41→11:53)
--- NOTE | 2020-03-22 12:00 | P.PN ---
Subjective Ms. Blancas is a 79-year-old female with a past medical history of hyperlipidemia coming into the hospital with a chief complaint of nausea, vomiting and diarrhea for 2 days. Patient states that she was recently on an antibiotic for the past 10 days and just completed her course on Thursday. it was given for her right lower extremity cellulitis. C. diff was checked and was negative. Patient is treated symptomatically. Today her nausea vomiting is better, no abdominal pain however she still have loose bowel movement, she has 3 bouts of diarrhea yesterday and another 3 bowel movement this morning. She still feels generally weak and she does not feel ready to go home because of her weakness Discussed the case with these network support manager, also discussed the case with the staff and GI team. We going to continue with IV fluids, start the Imodium, change Reglan 2 as needed. And also ask for PT/OT evaluation vitals and labs reviewed and it looks stable, however she has leukopenia 03/21/2020 Patient still have loose bowel movement, she has 3 bouts of diarrhea this morning. However she denies all other symptoms, no nausea vomiting, no abdomin al pain and she tolerate some diet Patient WBCs trending down to 1.7, also patient states is down to 50 7K, hemoglobin is stable. B12 is actually high at 1143. Stool studies showing negative stool lactoferrin and negative cryptosporidium antigen and Giardia antigen. [id number] is normal at 0.06. Patient is not on antibiotic and she is still on IV fluids AND 75 ML/H. PATIENT IS FOLLOWED CLOSELY BY GI TEAM. FLOW ACROSS THE HEMATOLOGY CONSULT IF NO IMPROVEMENT OR WORSENING OF HER blood cells per meters 03/22/2020 Patient still has significant diarrhea, she had 4 bouts of bowel movements overnight and once. This morning, I have a chance to look at it, it looks dark green in color and a small pieces however patient states that this also more. However patient keep denying abdominal pain, no nausea vomiting, she has poor appetite as well. Vitals stable. Labs showing improvement in leukopenia and thrombocytopenia with WBC up to 2.0K and platelets up to 68K. Sodium is low 133 and potassium is severely low at 2.6, his been replaced, also low-normal magnesium is been replaced. She still needs IV fluid with ongoing diarrhea. covid test is still pending . GI team are following the case closely . Continue with Imodium and Questran Objective - Vital Signs Vital signs: Vital Signs Temp 99.2 F 03/22/20 03:00 Pulse 65 03/22/20 03:00 Resp 18 03/22/20 03:00 BP 123/62 03/22/20 03:00 Pulse Ox 95 03/22/20 03:00 Intake & Output 03/21/20 03/22/20 03/22/20 18:59 06:59 18:59 Intake Total 1400 Balance 1400 Intake: Intake, IV Titration 1200 Amount Sodium Chloride 0.9% 1, 1200 000 ml @ 75 mls/hr IV . [id number] [facility] Rx#:[id number] Oral 200 Other: Voiding Method Toilet Toilet # Voids 2 1 - Exam GENERAL: The patient is alert and oriented x3, not in any acute distress. Well developed, well nourished. HEENT: Pupils are round and equally reacting to light. EOMI. No scleral icterus. No conjunctival pallor. Normocephalic, atraumatic. No pharyngeal erythema. No thyromegaly. CARDIOVASCULAR: S1 and S2 present. No murmurs, rubs, or gallops. PULMONARY: Chest is clear to auscultation, no wheezing or crackles. ABDOMEN: Soft, nontender, nondistended, normoactive bowel sounds. No palpable organomegaly. MUSCULOSKELETAL: No joint swelling or deformity. EXTREMITIES: No cyanosis, clubbing, or pedal edema. NEUROLOGICAL: Gross neurological examination did not reveal any focal deficits. SKIN: No rashes. no petechiae. - Labs CBC & Chem 7: 03/22/20 09:23 03/22/20 09:23 Labs: Abnormal Lab Results - Last 24 Hours (Table) 03/21/20 03/21/20 Range/Units 07:37 07:37 Plt Count 57 L (150-450) k/uL Neutrophils # (Manual) 0.80 L (1.3-7.7) k/uL Lymphocytes # (Manual) 0.66 L (1.0-4.8) k/uL Vitamin B12 1143.0 H (200.0-944.0) pg/mL Assessment and Plan Assessment: Acute gastroenteritis, mostly viral infection. Dehydration severe hypokalemia Generalized weakness Leukopenia and thrombocytopenia 0.6 cm proximal right ureteral stone, asymptomatic. Urinalysis is negative for infection 2 Plan: This is a pleasant 79 years old female who presents with dehydration and gastroenteritis. continue with IV fluid, and ask for physical therapy evaluation. Follow-up recommendation by GI team were consulted. Patient as she still needs treatment, test and IV fluid. Replace electrolytes, potassium and magnesium and monitor Labs and medication were reviewed.. Continue same treatment. Continue with symptomatic treatment. Resume home medication. Monitor lytes and vitals. DVT and GI prophylaxis. Further recommendationsas per clinical course of the patient DVT prophylaxis: Subcutaneous heparin GI Prophylaxis: Pepcid PT/OT: Home health care Prognosis is guarded
--- NOTE | 2020-03-22 12:14 | P.PN ---
Subjective Progress Note Date: 03/22/20 Principal diagnosis: Nausea, vomiting, diarrhea She was seen and examined lying in bed. She states she is feeling somewhat better today. However she states she is having difficulty eating because she has decreased appetite and a dry mouth. She denies any abdominal pain, nausea, or vomiting. She states she is still having loose watery bowel movements about every 2 hours. She states she did refuse to take her Questran yesterday. Coronavirus PCR still pending. Stool studies to date are negative. Objective - Vital Signs Vital signs: Vital Signs Temp 98.8 F 03/22/20 10:45 Pulse 62 03/22/20 10:45 Resp 16 03/22/20 10:45 BP 130/73 03/22/20 10:45 Pulse Ox 95 03/22/20 10:45 Intake & Output 03/21/20 03/22/20 03/22/20 18:59 06:59 18:59 Intake Total 1400 Balance 1400 Weight 41.73 kg Intake: Intake, IV Titration 1200 Amount Sodium Chloride 0.9% 1, 1200 000 ml @ 75 mls/hr IV . [id number] [facility] Rx#:[id number] Oral 200 Other: Voiding Method Toilet Toilet Toilet # Voids 2 1 - Exam General appearance: The patient is alert, oriented, in no acute distress. HET: Head is normocephalic and atraumatic. Conjunctiva pink. Sclera anicteric. Neck: Supple without lymphadenopathy. Abdomen: Soft, nontender, nondistended with bowel sounds. No guarding or rigidity. Extremities: Normal skin color and turgor. No pedal edema Neurological: No focal deficits. Alert and oriented 3. - Labs CBC & Chem 7: 03/22/20 09:23 03/22/20 09:23 Labs: Abnormal Lab Results - Last 24 Hours (Table) 03/21/20 03/22/20 03/22/20 Range/Units 07:37 09:23 09:23 WBC 2.0 L (3.8-10.6) k/uL Plt Count 68 L (150-450) k/uL Sodium 133 L (137-145) mmol/L Potassium 2.6 L* (3.5-5.1) mmol/L Creatinine 0.50 L (0.52-1.04) mg/dL Glucose 134 H (74-99) mg/dL Calcium 7.1 L (8.4-10.2) mg/dL Vitamin B12 1143.0 H (200.0-944.0) pg/mL Assessment and Plan (1) Nausea vomiting and diarrhea Narrative/Plan: 79-year-old female who presented to the hospital after development of nausea, vomiting and diarrhea occurring for a few days prior to presentation. No similar episodes. She denies any fevers but does report chills. No sick contacts or abnormal foods reported but the patient was recently on antibiotics for treatment of a cellulitis. She reports multiple episodes of nonbloody nonbilious emesis with associated loose frequent watery bowel movements. No abdominal pain reported. X-ray of the abdomen negative for any acute intra- abdominal process. Unclear etiology, suspicion is for acute bacterial or viral gastroenteritis with differential also including functional bowel disorder, or o ther etiology. Coronavirus PCR testing is pending. Stool studies to date are negative. Current Visit: Yes Status: Acute Code(s): R11.2 - NAUSEA WITH VOMITING, UNSPECIFIED; R19.7 - DIARRHEA, UNSPECIFIED SNOMED Code(s): 6050598 Plan: Supportive care Okay for diet as tolerated Stool studies ordered, negative to date Reglan changed to as needed Continue Zofran as needed for nausea Change loperamide to 2 mg 4 times a day scheduled Questran changed to scheduled twice a day Continue to monitor labs Replace potassium Thank you for allowing us to participate in the care of the patient The impression and plan of care has been dictated as directed. I performed a history and examination of this patient, discussed the same with the dictator. I agree with the dictator's note ,documented as a scribe. Any additional findings or plans will be noted.
[2020-03-22 12:21] LABS: Lymphocytes # (M) 0.52 k/uL (1.0-4.8); Monocytes # (M) 0.28 k/uL (0-1.0); Neutrophils % (M) 60 %; Nucleated Red Blood Cells 0 /100 WBC (0-0); Total Cells Counted 100
[2020-03-22] MEDS: LOPERAMIDE 2 MG CAP PO SCH ×4 (12:45→20:31)
[2020-03-22] MEDS: MAGNESIUM SULFATE-D5W PMX 1 GM in DEXTROSE/WATER 1 100ML.BAG IVPB SCH ×2 (12:46→14:03)
[2020-03-22] MEDS: POTASSIUM CHLORIDE ER 20 MEQ TAB.ER PO SCH ×3 (12:47→15:33)
[2020-03-22] MEDS ORDERED: LEVOFLOXACIN 500MG-D5W PMX 500 MG in DEXTROSE/WATER 1 100ML.BAG IVPB SCH (14:00)
[2020-03-22] MEDS: metroNIDAZOLE-NS PMX 500 MG in SALINE 1 100ML.BAG IVPB SCH ×2 (16:46→23:52)
[2020-03-22] MEDS: POTASSIUM CHLORIDE 20 MEQ in WATER FOR INJECTION 1 100ML.BAG IVPB SCH ×2 (18:41→22:32)
[2020-03-22] MEDS ORDERED: POTASSIUM CHLORIDE ER 20 MEQ TAB.ER PO STA (18:55)
[2020-03-22] MEDS: MONTELUKAST 10 MG TAB PO SCH (20:31)
[2020-03-22] MEDS: ATORVASTATIN 80 MG TAB PO SCH (20:31)
[2020-03-23 07:59] VITALS: BP 108/73; PULSE 84; RESP 16; TEMP 98.4
[2020-03-23] MEDS: metroNIDAZOLE-NS PMX 500 MG in SALINE 1 100ML.BAG IVPB SCH (07:59)
[2020-03-23] MEDS: FERROUS SULFATE 325 MG TAB PO SCH (07:59)
[2020-03-23] MEDS: HEPARIN SODIUM,PORCINE 5,000 UNIT/ML 1 ML VIAL SQ SCH (07:59)
[2020-03-23] MEDS: FAMOTIDINE 20 MG TAB PO SCH (07:59)
[2020-03-23] MEDS: LOPERAMIDE 2 MG CAP PO SCH (07:59)
[2020-03-23 08:42] LABS: HCT 44.6 % (34.0-46.0); HGB 14.5 gm/dL (11.4-16.0); MCH 31.5 pg (25.0-35.0); MCHC 32.5 g/dL (31.0-37.0); MCV 96.9 fL (80.0-100.0); Mean Platelet Volume 10.3; RDW 12.7 % (11.5-15.5); WBC 2.9 k/uL (3.8-10.6)
[2020-03-23 08:43] LABS: Platelet Count 93 k/uL (150-450)
[2020-03-23 08:56] LABS: African American GFR (CKD) >90 (>60 ml/min/1.73 sqM); Anion Gap 8 mmol/L; Blood Urea Nitrogen 11 mg/dL (7-17); Calcium 7.4 mg/dL (8.4-10.2); Carbon Dioxide 17 mmol/L (22-30); Chloride 111 mmol/L (98-107); Glucose 98 mg/dL (74-99); Non-African American GFR(CKD) >90 (>60 ml/min/1.73 sqM); Sodium 136 mmol/L (137-145)
[2020-03-23 09:18] LABS: Potassium 4.7 mmol/L (3.5-5.1)
[2020-03-23 09:51] LABS: Band Neutrophils % 2 %; Eosinophils # (M) 0.03 k/uL (0-0.7); Lymphocytes # (M) 1.31 k/uL (1.0-4.8); Monocytes # (M) 0.52 k/uL (0-1.0); Neutrophils % (M) 35 %; Nucleated Red Blood Cells 0 /100 WBC (0-0); Total Cells Counted 200
[2020-03-23 09:52] LABS: Reactive Lymphocytes Present
--- NOTE | 2020-03-23 12:38 | P.PN ---
Subjective Progress Note Date: 03/23/20 Principal diagnosis: Nausea, vomiting, diarrhea Patient was seen and examined at the bedside. She states she is feeling much better today. She ate some oatmeal this morning for breakfast. She had one bowel movement this morning that was more formed and states much smaller in quantity. She denies any nausea, vomiting or abdominal pain. Objective - Vital Signs Vital signs: Vital Signs Temp 98.4 F 03/23/20 07:58 Pulse 84 03/23/20 07:58 Resp 16 03/23/20 07:58 BP 108/73 03/23/20 07:58 Pulse Ox 95 03/23/20 07:58 Intake & Output 03/22/20 03/23/20 03/23/20 18:59 06:59 18:59 Intake Total 1100 Balance 1100 Weight 41.73 kg Intake: Intake, IV Titration 900 Amount Potassium Chloride 20 meq 200 In Water For Injection 1 100ml.bag @ 50 mls/hr IVPB Q2H DC Rx#: [id number] Sodium Chloride 0.9% 1, 600 000 ml @ 75 mls/hr IV . [id number] DC Rx#:[id number] metroNIDAZOLE-NS PMX 500 100 mg In Saline 1 100ml.bag @ 100 mls/hr IVPB Q8HR DC Rx#:[id number] Oral 200 Other: Voiding Method Toilet Toilet Toilet # Voids 1 3 - Exam General appearance: The patient is alert, oriented, in no acute distress. HET: Head is normocephalic and atraumatic. Conjunctiva pink. Sclera anicteric. Neck: Supple without lymphadenopathy. Abdomen: Soft, nontender, nondistended with bowel sounds. No guarding or rigidity. Extremities: Normal skin color and turgor. No pedal edema Neurological: No focal deficits. Alert and oriented 3. - Labs CBC & Chem 7: 03/23/20 07:46 03/23/20 07:46 Labs: Abnormal Lab Results - Last 24 Hours (Table) 03/22/20 03/23/20 03/23/20 Range/Units 15:00 07:46 07:46 WBC 2.9 L (3.8-10.6) k/uL Plt Count 93 L (150-450) k/uL Neutrophils # (Manual) 1.00 L (1.3-7.7) k/uL Sodium 136 L (137-145) mmol/L Potassium 2.5 L* (3.5-5.1) mmol/L Chloride 111 H (98-107) mmol/L Carbon Dioxide 17 L (22-30) mmol/L Creatinine 0.45 L (0.52-1.04) mg/dL Calcium 7.4 L (8.4-10.2) mg/dL Microbiology - Last 24 Hours (Table) 03/20/20 17:20 Stool Culture - Preliminary Stool Assessment and Plan (1) Nausea vomiting and diarrhea Narrative/Plan: 79-year-old female who presented to the hospital after development of nausea, vomiting and diarrhea occurring for a few days prior to presentation. No similar episodes. She denies any fevers but does report chills. No sick contacts or abnormal foods reported but the patient was recently on antibiotics for treatment of a cellulitis. She reports multiple episodes of nonbloody nonbilious emesis with associated loose frequent watery bowel movements. No abdominal pain reported. X-ray of the abdomen negative for any acute intra- abdominal process. Unclear etiology, suspicion is for acute bacterial or viral gastroenteritis with differential also including functional bowel disorder, or other etiology. Coronavirus PCR testing is pending. Stool studies to date are negative. Diarrhea is improving. Current Visit: Yes Status: Acute Code(s): R11.2 - NAUSEA WITH VOMITING, UNSPECIFIED; R19.7 - DIARRHEA, UNSPECIFIED SNOMED Code(s): 1752710 Plan: Supportive care Okay for diet as tolerated Stool studies ordered, negative to date Reglan changed to as needed Continue Zofran as needed for nausea Change loperamide to 2 mg 4 times a day scheduled Questran changed to scheduled twice a day Thank you for allowing us to participate in the care of the patient. The patient may be discharged home from a gastroenterology standpoint. Follow-up in 1-2 weeks. The impression and plan of care has been dictated as directed. I performed a history and examination of this patient, discussed the same with the dictator. I agree with the dictator's note ,documented as a scribe. Any additional findings or plans will be noted.
[2020-03-23] MEDS ORDERED: ZINC SULFATE 220 MG CAP PO SCH (13:45)
[2020-03-23] MEDS ORDERED: ASCORBIC ACID 500 MG TAB PO SCH (13:45)
--- NOTE | 2020-03-24 06:12 | P.DS ---
Providers Date of admission: 03/20/20 12:23 Attending physician: Veronika Pop Consults: 03/20/20 12:13 Consult Physician Urgent Consulting Provider: Jacque Austin Consult Reason/Comments: diarrhea Do you want consulting provider notified?: Yes [facility] Course: Diagnoses: Acute gastroenteritis, mostly viral infection. Diarrhea stopped prior to discharge Covid-19 infection, patient is afebrile and no hypoxia Dehydration , improved severe hypokalemia, potassium normal on discharge Generalized weakness Leukopenia and thrombocytopenia, secondary to viral infection, improving 0.6 cm proximal right ureteral stone, asymptomatic. Urinalysis is negative for infection 2 Hospital course: Ms. Blancas is a 79-year-old female with a past medical history of hyperlipidemia coming into the hospital with a chief complaint of nausea, vomiting and diarrhea for 2 days. Since there really hospitalization patient vomiting and nausea were stopped and patient did not have any abdominal pain throughout her stay. However she To have diarrhea until this morning when her stool, more formed and diarrhea stopped and patient is tolerating diet well today with regaining her appetite. Patient has been treated with several medications including IV fluids, Imodium and Questran as needed . On the day of discharge her covid 19 test came back positive, patient informed and she made aware and she was encouraged to follow the CDC guidelines of isolation Leukopenia and thrombocytopenia, secondary to viral infection were improving gradually over the last 2-3 days. Vitamin B12 is not low. Patient on the day of discharge she denies any chest pain, no dyspnea. Saturating 95% on room air, she is afebrile, nausea vomiting or stopped no abdominal pain diarrhea stopped no fever Patient was cleared for discharge by GI team Problems and management plan were discussed with the patient and he verbalized understanding and acceptance Patient was found stable and can be discharged home however he needs follow-up as an outpatient. Patient was instructed to follow up with PCP Dr. Watkins within one week and patient agrees with the appointments made for her On 03/[address] Austin appointment on 04/03 Gen: patient is a AAOx3, no distress CVS: S1-S2, RRR, no murmur Lungs: B/L CTA, no wheezing Abdomen: soft, no distention, no tenderness, positive bowel sounds Extremity: no leg edema or induration Time spent more than 35 minutes Patient Condition at Discharge: Stable Plan - Discharge Summary New Discharge Prescriptions: New Famotidine [Pepcid] 20 mg PO Q12HR #40 tab Cholestyramine (with Sugar) [Questran Packet] 4 gm PO BID@1000,1800 PRN 3 Days #6 packet PRN Reason: Diarrhea Acetaminophen Tab [Tylenol] 650 mg PO Q6HR PRN tab PRN Reason: Mild Pain Or Fever > 100.5 Zinc Sulfate [Orazinc] 220 mg PO DAILY #30 cap Ascorbic Acid [Vitamin C] 500 mg PO DAILY #30 tab Continue Olopatadine HCl [Patanol] 1 drop BOTH EYES DAILY PRN PRN Reason: allergies Montelukast Sodium [Singulair] 10 mg PO HS Ferrous Sulfate [Iron (65 MG Elemental)] 325 mg PO DAILY Atorvastatin Calcium [Lipitor] 80 mg PO HS Acetaminophen-Codeine 300-30mg [Tylenol w/codeine #3] 1 tab PO QID PRN PRN Reason: Pain Denosumab [Prolia] 60 mg INJ Q180D Butalbital/Aspirin/Caffeine [Tkfvdcvzqq-ZFI-Iduqwpsc Cap 50-325-40] 1 cap PO DAILY PRN PRN Reason: Migraine Headache Discontinued Ibuprofen [Motrin] 400 mg PO BID PRN PRN Reason: sinus headache Discharge Medication List Acetaminophen-Codeine 300-30mg [Tylenol w/codeine #3] 1 tab PO QID PRN 03/18/20 [History] Atorvastatin Calcium [Lipitor] 80 mg PO HS 03/18/20 [History] Butalbital/Aspirin/Caffeine [Bafsipyrra-HSF-Wysmuhdk Cap 50-325-40] 1 cap PO DAILY PRN 03/18/20 [History] Denosumab [Prolia] 60 mg INJ Q180D 03/18/20 [History] Ferrous Sulfate [Iron (65 MG Elemental)] 325 mg PO DAILY 03/18/20 [History] Montelukast Sodium [Singulair] 10 mg PO HS 03/18/20 [History] Olopatadine HCl [Patanol] 1 drop BOTH EYES DAILY PRN 03/18/20 [History] Acetaminophen Tab [Tylenol] 650 mg PO Q6HR PRN tab 03/23/20 [Rx] Ascorbic Acid [Vitamin C] 500 mg PO DAILY #30 tab 03/23/20 [Rx] Cholestyramine (with Sugar) [Questran Packet] 4 gm PO BID@1000,1800 PRN 3 Days #6 packet 03/23/20 [Rx] Famotidine [Pepcid] 20 mg PO Q12HR #40 tab 03/23/20 [Rx] Zinc Sulfate [Orazinc] 220 mg PO DAILY #30 cap 03/23/20 [Rx] Follow up Appointment(s)/Referral(s): Pedro May MD [Primary Care Provider] - 03/28/20 2:30 pm Jacque Austin MD [STAFF PHYSICIAN] - 04/03/20 8:30 am (With Chioma Redman [employer]ALITY [employer]OL SCIENTIST) [facility], [NON-STAFF] - 1-2 Days Patient Instructions/Handouts: Dehydration (DC) Activity/Diet/Wound Care/Special Instructions: Heart healthy diet Activity is unrestricted until you see your doctor you are Covid test positive: -We recommend to keep contact on droplet isolation as per CDC guidelines -Please call 911 on come to emergency room right away if he would come short of breath, hypoxic or if you develop fever. -Take your medication and follow-up with your doctor as an outpatient as instructed Discharge Disposition: HOME SELF-CARE
== END 2020-03-23 14:50 | disposition home health service (06) | DRG 178 ==
LOC: EC 12:14 → 1SOBS 14:55 → OBSVTOIN 03-20 12:23
PROVIDERS: ADMIT Internal Medicine; ATTEND Internal Medicine
DX: U07.1 COVID-19 (principal); A08.39 Other viral enteritis; L03.115 Cellulitis of right lower limb; N20.1 Calculus of ureter; D69.59 Other secondary thrombocytopenia; E86.0 Dehydration; E87.6 Hypokalemia; R00.1 Bradycardia, unspecified; E78.5 Hyperlipidemia, unspecified; Z79.899 Other long term (current) drug therapy; Z87.891 Personal history of nicotine dependence; Z90.89 Acquired absence of other organs; Z98.890 Other specified postprocedural states; Z88.0 Allergy status to penicillin
CPT/HCPCS: 36415; 74018; 80048; 80053; 81001; 82607; 83630; 83690; 83735; 84132; 84145; 85025; 87045; 87046; 87324; 87328; 87329; 93005; 96374; 99285

== ENCOUNTER → 2020-04-09 | Outpatient (CLI) | payer MEDICARE, OTHER | END | disposition home or self-care (01) | LOC: LABWHC1 11:51 | PROVIDERS: ATTEND Internal Medicine | DX: R50.9 Fever, unspecified (principal); R05 Cough | CPT/HCPCS: U0003; C9803 ==

== ENCOUNTER → 2020-09-11 | Outpatient (CLI) | payer MEDICARE, OTHER ==
--- NOTE | 2020-09-12 08:03 | BD ---
EXAMINATION TYPE: Axial Bone Density DATE OF EXAM: 09/11/2020 COMPARISON: 09/09/2018 CLINICAL HISTORY: Height: 57 IN Weight: 99 LBS FRAX RISK QUESTIONS: Secondary Osteoporosis: 3. Menopause before 45: AGE 42 RISK FACTORS HISTORY OF: Active: YES Postmenopausal woman: AGE 42 Take estrogen and/or progesterone medications: NOT NOW How long: TOOK ESTROGEN FOR 15 YEARS MEDICATIONS: Osteoporosis Medications: YES Which medication: Prolia How Lon YEARS Additional Medications: PROLIA INJ EVERY 6 MONTHS, LIPITOR, IRON, ALLERGY MEDS, SINUS MEDS, TYLENOL 3 , EXAM MEASUREMENTS: Bone mineral densitometry was performed using the [employer] System. Bone mineral density as measured about the Lumbar spine is: ----- L1-L4(G/cm2): 0.875 T Score Values are as follows: ----- L2: -2.5 ----- L3: -2.6 ----- L4: -2.7 ----- L1-L4: -2.5 Bone mineral density has: Increased 2.3% since study of: 09/09/2018 Bone mineral density about the R hip (g/cm2): 0.607 Bone mineral density about the L hip (g/cm2): 0.592 T Score values are as follows: -----R Neck: -3.1 -----L Neck: -3.2 -----R Total: -3.2 -----L Total: -3.3 Bone mineral density has: Increased 1.0% since study of: 09/09/2018 IMPRESSION: Osteoporosis NOTE: T-SCORE=SD OF THE YOUNG ADULT MEAN.
== END | disposition home or self-care (01) ==
LOC: RADBDWWP 14:23
PROVIDERS: ATTEND Internal Medicine
DX: Z78.0 Asymptomatic menopausal state (principal); M81.8 Other osteoporosis without current pathological fracture
CPT/HCPCS: 77080

== ENCOUNTER → 2021-02-15 | Outpatient (CLI) | payer MEDICARE, OTHER ==
[2021-02-18 11:51] LABS: Bermuda Grass IgE <0.10 kU/L (<0.10); House Dust (H-S) IgE <0.10 kU/L (<0.10); House Dust (H-S) IgE Class CLASS 0; Meadow Fescue IgE <0.10 kU/L (<0.10); Meadow Fescue IgE Class CLASS 0; Meadow Grs (KY blue) IgE <0.10 kU/L (<0.10); Meadow Grs (KY blue) IgE Class CLASS 0; Pecan IgE <0.10 kU/L (<0.10); Pecan IgE Class CLASS 0; Timothy Grass IgE <0.10 kU/L (<0.10); Timothy Grass IgE Class CLASS 0
[2021-02-18 11:52] LABS: Beech IgE <0.10 kU/L (<0.10); Cottonwood IgE <0.10 kU/L (<0.10); Lamb's Quarter IgE <0.10 kU/L (<0.10); Lamb's Quarter IgE Class CLASS 0; Penicillium notatum IgE Class CLASS 0; Sycamore(Mpl.Lf) IgE <0.10 kU/L (<0.10); Sycamore(Mpl.Lf) IgE Class CLASS 0; Willow Tree IgE <0.10 kU/L (<0.10)
[2021-02-18 11:53] LABS: Goldenrod IgE <0.10 kU/L (<0.10); Goldenrod IgE Class CLASS 0; Ragweed, Giant IgE <0.10 kU/L (<0.10); Ragweed, Giant IgE Class CLASS 0; Sheep Sorrel IgE <0.10 kU/L (<0.10); Sheep Sorrel IgE Class CLASS 0
[2021-02-18 11:54] LABS: English Plantain IgE Class CLASS 0
== END | disposition home or self-care (01) ==
LOC: LABWHC1 15:40
PROVIDERS: ATTEND Internal Medicine
DX: J30.9 Allergic rhinitis, unspecified (principal)
CPT/HCPCS: 36415; 82785; 86003

== ENCOUNTER → 2021-04-26 | Outpatient (CLI) | payer MEDICARE, OTHER ==
--- NOTE | 2021-04-30 11:57 | MM ---
Reason for exam: screening (asymptomatic). Last mammogram was performed 1 year and 1 month ago. History: Patient is postmenopausal and is nulliparous. Physical Findings: A clinical breast exam by your physician is recommended on an annual basis and results should be correlated with mammographic findings. MG 3D Screening Mammo W/Cad Bilateral CC, MLO, and XCCL view(s) were taken. Prior study comparison: March 16, 2020, bilateral MG 3d screening mammo w/cad. October 07, 2018, bilateral MG 3d screening mammo w/cad. May 26, 2017, bilateral MG screening mammo w CAD. The breast tissue is heterogeneously dense. This may lower the sensitivity of mammography. A benign oil cyst calcifications on either sides. No significant changes when compared with prior studies. ASSESSMENT: Benign, BI-RAD 2 RECOMMENDATION: Routine screening mammogram of both breasts in 1 year.
== END | disposition home or self-care (01) ==
LOC: RADMAMWWP 13:31
PROVIDERS: ATTEND Internal Medicine
DX: Z12.31 Encounter for screening mammogram for malignant neoplasm of breast (principal); Z78.0 Asymptomatic menopausal state
CPT/HCPCS: 77063; 77067

== ENCOUNTER → 2021-04-26 | Outpatient (CLI) | payer MEDICARE, OTHER ==
--- NOTE | 2021-04-26 15:45 | XR ---
Cervical spine HISTORY: Chronic neck pain 3 views of the cervical spine, no comparisons Cervical vertebral bodies show preserved height. Bone mineralization is reduced. There is anterolisth esis grade 1 C3-4, C4-5 and C5-6, C6-7, loss of disc height is greatest at C4-5 also present at C3-4, C5-6. There is multilevel spondylosis. Facet arthropathy changes are present. IMPRESSION: Degenerative disc disease and facet arthropathy, osteopenia, multilevel spondylolisthesis .
== END | disposition home or self-care (01) ==
LOC: RADXRMAIN 13:54
PROVIDERS: ATTEND Internal Medicine
DX: M43.12 Spondylolisthesis, cervical region (principal); M47.812 Spondylosis without myelopathy or radiculopathy, cervical region; M50.322 Other cervical disc degeneration at C5-C6 level; M85.88 Other specified disorders of bone density and structure, other site
CPT/HCPCS: 72040

== ENCOUNTER 2021-04-30 20:27 | Emergency (ER) | payer MEDICARE, OTHER ==
[2021-04-30 20:40] VITALS: BP 125/76; PULSE 75; RESP 16; TEMP 98.1
[2021-04-30] MEDS ORDERED: LIDOCAINE 1%-EPI 1:100,000 20 ML VIAL SQ STA (21:07)
[2021-04-30] MEDS ORDERED: BUPIVACAINE (PF) 0.5% 30 ML VIAL SQ STA (21:07)
[2021-04-30] MEDS ORDERED: ACETAMINOPHEN TAB 500 MG TAB PO STA (21:25)
[2021-04-30] MEDS ORDERED: DIPH,PERTUS(ACELL)TETVAC-LF 0.5 ML VIAL IM ONE (21:49)
--- NOTE | 2021-04-30 22:37 | CT ---
EXAMINATION TYPE: CT brain wo con DATE OF EXAM: 04/30/2021 COMPARISON: None HISTORY: fall, 5 jessica placed on posterior head CT DLP: 1129.4 mGycm Automated exposure control for dose reduction was used. Ventricles have normal size. There is no mass effect nor midline shift. There is no sign of intracran ial hemorrhage. There is mild atrophy appropriate for age. Calvarium is intact. There are skin staple s in the parietal scalp. There is scalp soft tissue swelling over the parietal bone with scalp hemato ma that measures up to 9 mm in thickness. There is no evidence of a fracture. IMPRESSION: Scalp hematoma. Negative CT scan of the brain.
--- NOTE | 2021-04-30 22:40 | XR ---
EXAMINATION TYPE: XR chest 2V DATE OF EXAM: 04/30/2021 COMPARISON: NONE HISTORY: Fall. Pain TECHNIQUE: 2 views FINDINGS: Heart is normal. There is a poorly marginated 1.7 cm nodular density in the right upper lob e. The other lung ly are clear. There are no hilar masses. IMPRESSION: Right upper lobe nodular density. Follow-up recommended. Normal heart.
--- NOTE | 2021-04-30 22:42 | XR ---
EXAMINATION TYPE: XR pelvis AP view DATE OF EXAM: 04/30/2021 COMPARISON: NONE HISTORY: Fall. Pain TECHNIQUE: Single view FINDINGS: Pelvic ring is intact. Proximal femurs and hip joints are intact. There is no hip dysplasia . Sacroiliac joints are intact. IMPRESSION: Normal pelvis.
--- NOTE | 2021-04-30 23:19 | ED ---
Fall HPI - General Chief Complaint: Fall Stated Complaint: Fall-Head Injury Time Seen by Provider: 04/30/21 21:06 Source: patient Mode of arrival: ambulatory - History of Present Illness Initial Comments: This 80-year-old female presents complaining of a fall injury. She apparently was at a banquet and ran into a closed glass door. She then fell backwards and hit her head. She did not lose any consciousness. She did not have any nausea or vomiting. She did obtain a scalp laceration in her occiput. She only had mild bleeding. She also complains of some mild chest soreness and some mild soreness to her buttocks. She denies any neck pain or back pain. Her last tetanus is unknown but more than 5 years ago. She denies any other injuries or complaints or modifying factors. She denies being on any blood thinners. - Related Data Home Medications Medication Instructions Recorded Confirmed Acetaminophen-Codeine 300-30mg 1 tab PO QID PRN 03/18/20 03/18/20 [Tylenol w/codeine #3] Atorvastatin Calcium [Lipitor] 80 mg PO HS 03/18/20 03/18/20 Butalbital/Aspirin/Caffeine 1 cap PO DAILY PRN 03/18/20 03/18/20 [Expqppnlkv-TVC-Zafjhszp Cap 50-325-40] Denosumab [Prolia] 60 mg INJ Q180D 03/18/20 03/18/20 Ferrous Sulfate [Iron (65 MG 325 mg PO DAILY 03/18/20 03/18/20 Elemental)] Montelukast Sodium [Singulair] 10 mg PO HS 03/18/20 03/18/20 Olopatadine HCl [Patanol 0.1%] 1 drop BOTH EYES DAILY PRN 03/18/20 03/18/20 Previous Rx's Medication Instructions Recorded Acetaminophen Tab [Tylenol] 650 mg PO Q6HR PRN tab 03/23/20 Ascorbic Acid [Vitamin C] 500 mg PO DAILY #30 tab 03/23/20 Cholestyramine (with Sugar) 4 gm PO BID@1000,1800 PRN 3 Days 03/23/20 [Questran Packet] #6 packet Famotidine [Pepcid] 20 mg PO Q12HR #40 tab 03/23/20 Zinc Sulfate [Orazinc] 220 mg PO DAILY #30 cap 03/23/20 Allergies Allergy/AdvReac Type Severity Reaction Status Date / Time Penicillins Allergy Rash/Hives Verified 04/30/21 20:40 Review of Systems ROS Statement: Those systems with pertinent positive or pertinent negative responses have been documented in the HPI. ROS Other: All systems not noted in ROS Statement are negative. Past Medical History Past Medical History: Hyperlipidemia History of Any Multi-Drug Resistant Organisms: None Reported Past Surgical History: Tonsillectomy Past Psychological History: No Psychological Hx Reported Smoking Status: Former smoker Past Alcohol Use History: Occasional Past Drug Use History: None Reported General Exam - General Exam Comments Initial Comments: GENERAL: The patient is well nourished and well hydrated. VITAL SIGNS: Heart rate, blood pressure, respiratory rate reviewed as recorded in nurse's notes. EYES: Pupils are round and reactive. Extraocular movements are intact. No conjunctival / lid redness or swelling. ENT: No external evidence of injury, swelling, or ecchymosis. Airway is patent. Throat is clear. There is a 3 cm laceration noted to the superior occiput midline. NECK: Nontender. No swelling or evidence of injury. No subcutaneous emphysema. Trachea is midline. No thyroid mass. HEART: Regular rate and rhythm. Good peripheral pulses. LUNGS/CHEST: Breath sounds clear and equal bilaterally. No rales, rhonchi, or wheezes. No ecchymosis, subcutaneous emphysema, with scant tenderness noted to anterior chest diffusely. ABDOMEN: Abdomen soft without tenderness. No palpable masses or organomegaly. No peritoneal signs. No abdominal wall swelling or ecchymosis. EXTREMITIES: No extremity tenderness. Normal muscle tone and function. No thorac olumbar tenderness. There is minimal tenderness noted to the sacral region. NEUROLOGIC: Sensation is grossly intact. Cranial nerve exam reveals face is symmetrical, tongue is midline, speech is clear. SKIN: No abrasions or ecchymosis is noted. No induration or masses noted. PSYCHIATRIC: Alert and oriented. Appropriate behavior and judgment. Course Vital Signs 04/30/21 20:35 Temperature 98.1 F Pulse Rate 75 Respiratory 16 Rate Blood Pressure 125/76 O2 Sat by Pulse 97 Oximetry Medical Decision Making - Medical Decision Making The patient was seen and examined. All diagnostics were reviewed. An x-ray was done of the chest and this does not show any acute process but they do note a nodular density in the right upper lobe and recommend follow-up in this regard. Patient is informed of this and she will follow up with her primary care this regard. The AP pelvis x-ray is negative. The computed tomography scan of the brain is negative. Patient received a TD Prophylaxis. She had her wound cleansed and anesthetized with lidocaine with epinephrine and bupivacaine, approximately 6 mL. Excellent anesthesia was obtained. No foreign bodies were noted. The wound was cleansed and it was closed with 5 jessica. No complications were encountered. Patient is counseled regarding her diagnoses. It is felt as though she still for discharge. Return parameters are discussed. Disposition Clinical Impression: Fall from standing, Head injury, Scalp laceration, Chest wall contusion, Sacral contusion Disposition: HOME SELF-CARE Condition: Good Instructions (If sedation given, give patient instructions): Fall Prevention for Older Adults (ED), Head Injury (ED), Staple Care (ED), Chest Wall Pain (ED) Additional Instructions: Please use Tylenol and/or Motrin as needed for pain. Chest x-ray did show a small nodule. Please follow-up with Dr. May in this regard for further testing. Is patient prescribed a controlled substance at d/c from ED?: No Referrals: Pedro May MD [Primary Care Provider] - 1-2 days Time of Disposition: 23:18
== END 2021-04-30 23:25 | disposition home or self-care (01) ==
LOC: EC 20:27
DX: S01.01XA Laceration without foreign body of scalp, initial encounter (principal); S20.219A Contusion of unspecified front wall of thorax, initial encounter; S30.0XXA Contusion of lower back and pelvis, initial encounter; S09.90XA Unspecified injury of head, initial encounter; E78.5 Hyperlipidemia, unspecified; Z87.891 Personal history of nicotine dependence; Z88.0 Allergy status to penicillin; Z23 Encounter for immunization; W19.XXXA Unspecified fall, initial encounter
CPT/HCPCS: 12002; 70450; 71046; 72170; 90471; 90715; 99284

== ENCOUNTER → 2021-05-13 | Outpatient (CLI) | payer MEDICARE, OTHER ==
[2021-05-13 07:41] LABS: African American GFR (CKD) >90 (>60 ml/min/1.73 sqM); Blood Urea Nitrogen 25 mg/dL (7-17); Non-African American GFR(CKD) 84 (>60 ml/min/1.73 sqM)
--- NOTE | 2021-05-13 08:41 | CT ---
EXAMINATION TYPE: CT chest w con DATE OF EXAM: 05/13/2021 COMPARISON: None HISTORY: Abnormal findings in right lung field CT DLP: 95.4 mGycm Automated exposure control for dose reduction was used. CONTRAST: CT scan of the chest is performed with IV Contrast, patient injected with 95 mL of Isovue 300. FINDINGS: LUNGS: Right upper lobe pulmonary nodule measuring 1.2 cm. Additional nodule left upper lobe anterome dially measures 1.1 cm. 4.6 mm pulmonary nodule right upper lobe image 15. Hyperinflation compatible with COPD. Scattered subpleural fibrosis. MEDIASTINUM: There are no greater than 1 cm hilar or mediastinal lymph nodes. No pericardial effusi on is seen. Thoracic aorta is of normal caliber. The heart is not enlarged. UPPER ABDOMEN: Renal cystic changes identified. OTHER: No additional significant abnormality is seen. IMPRESSION: 1. Pulmonary nodularity is noted is nonspecific. Metastatic disease not excluded. Consider PET/CT for further evaluation.
== END | disposition home or self-care (01) ==
LOC: RADCTMAIN 06:59
PROVIDERS: ATTEND Internal Medicine
DX: R91.8 Other nonspecific abnormal finding of lung field (principal)
CPT/HCPCS: 82565; 84520; 71260; 36415; Q9967

== ENCOUNTER → 2021-05-31 | Outpatient (CLI) | payer MEDICARE, OTHER ==
--- NOTE | 2021-06-03 08:32 | PE ---
EXAMINATION TYPE: PET CT fusion skull to thigh DATE OF EXAM: 05/31/2021 COMPARISON: Chest CT May 13, 2021 HISTORY: Liver cancer per patient. Abnormal recent CT, lung nodules per order. TECHNIQUE: Following the intravenous administration of 10.34 mCi of F-18 FDG, whole body images are performed from the skull base to the midthigh. Images are reviewed on the computer in the coronal, a xial, and sagittal planes. Reconstructed rotating images are created on independent workstation and reviewed on the computer. A localization and attenuation correction CT is performed in conjunction with the PET scan. Blood glucose level equals 80. SCAN: Initial Scan FINDINGS: SKULL BASE AND NECK: No areas of abnormal hypermetabolic uptake. CHEST, MEDIASTINUM, AND HILAR REGION: Persistent posterior right upper lung 1.5 x 1.3 cm nodule or no dular consolidation axial image 50 is ametabolic. Persistent anterior left mid lung 1.2 x 1.0 cm nodu le or nodular consolidation is also ametabolic. No areas of abnormal hypermetabolic uptake in the tho rax. ABDOMEN AND PELVIS: Normal excretion is present. No areas of abnormal hypermetabolic uptake are seen. OSSEOUS STRUCTURES: Horizontal increased hypermetabolic uptake in the sternum axial image 61 with per haps subtle sclerosis on CT correlate, max SUV is 2.8 to. No definitive areas of additional abnormal hypermetabolic uptake. OTHER CT: Scleral calcification bilateral globes. Calcification at level of the aortic valve. Coronar y artery calcification in the proximal LAD. A few scattered pelvic phleboliths. IMPRESSION: No suspicious hypermetabolic uptake in the bilateral pulmonary nodules. Nonspecific horiz ontal uptake upper sternum, correlate for possible subacute or healing nondisplaced fracture otherwis e unremarkable study. Advise CT and/or PET CT follow-up in 6-12 months time to document stability in size of bilateral pulmonary nodules.
== END | disposition home or self-care (01) ==
LOC: RADPETMAIN 13:00
PROVIDERS: ATTEND Internal Medicine
DX: R91.8 Other nonspecific abnormal finding of lung field (principal)
CPT/HCPCS: 78815; A9552

== ENCOUNTER → 2022-01-02 | Outpatient (CLI) | payer MEDICARE, OTHER ==
[2022-01-02 23:23] LABS: T4, Free (Free Thyroxine) 1.22 ng/dL (0.800-1.800)
== END | disposition home or self-care (01) ==
LOC: LABWHC1 13:47
PROVIDERS: ATTEND Ophthalmology
DX: H02.409 Unspecified ptosis of unspecified eyelid (principal)
CPT/HCPCS: 36415; 83519; 84439; 84443

== ENCOUNTER → 2022-04-08 | Outpatient (CLI) | payer MEDICARE, OTHER ==
--- NOTE | 2022-04-08 14:21 | MR ---
EXAMINATION TYPE: MR cervical spine wo con DATE OF EXAM: 04/08/2022 COMPARISON: Cervical spine radiograph 03/03/2022, PET CT 05/31/2021 HISTORY: Pain, cervical deformity TECHNIQUE: Multiplanar, multisequence images of the cervical spine were acquired without contrast. FINDINGS: Cervical segments are intact. Grade 1 anterolisthesis of C3 on C4 and C4 on C5. Levocurvature of the cervical spine. Cervical spinal cord is of normal signal. Craniovertebral junction relationships are within normal limits. Multilevel degenerative disc disease. Multilevel disc desiccation. C2-C3: No disc bulge/herniation or protrusion. No Canal stenosis. Foramina are patent bilaterally. C3-C4: Posterior disc osteophyte complex with minimal effacement of the anterior thecal sac. Uncovert ebral joint hypertrophy. There is mild bilateral neural foraminal stenosis. C4-C5: Posterior disc osteophyte complex with mild effacement of the anterior thecal sac. Uncovertebr al joint hypertrophy. Mild right neuroforaminal stenosis. The left neural foramen is patent. C5-C6: Posterior disc osteophyte complex with minimal effacement of the anterior thecal sac. Uncovert ebral joint hypertrophy. There is minimal bilateral neural foraminal stenosis. C6-C7: No disc bulge/herniation or protrusion. No Canal stenosis. Foramina are patent bilaterally. C7-T1: No disc bulge/herniation or protrusion. No Canal stenosis. Foramina are patent bilaterally. IMPRESSION: 1. No disc herniation or significant central canal stenosis. 2. Mild multilevel degenerative disc disease as described above. 3. Levocurvature of the cervical spine with grade 1 anterolisthesis of C3 on C4 and C4 on C5.
== END | disposition home or self-care (01) ==
LOC: RADMRIMAIN 12:32
PROVIDERS: ATTEND Orthopaedic Surgery
DX: M50.321 Other cervical disc degeneration at C4-C5 level (principal); M43.12 Spondylolisthesis, cervical region; M43.9 Deforming dorsopathy, unspecified
CPT/HCPCS: 72141

== ENCOUNTER → 2023-03-23 | Outpatient (CLI) | payer MEDICARE, OTHER ==
--- NOTE | 2023-03-24 18:37 | MM ---
Reason for Exam: Screening (asymptomatic). Last mammogram was performed 1 year(s) and 11 month(s) ago. Patient History: Menarche at age 13. Patient has no children. Postmenopausal. Risk Values: Tanesha 5 year model risk: 1.5%. NCI Lifetime model risk: 1.9%. Prior Study Comparison: 10/07/2018 Bilateral Screening Mammogram, [facility]. 03/16/2020 Bilateral Screening Mammogram, [facility]. 04/26/2021 Bilateral Screening Mammogram, [facility]. Tissue Density: The breast tissue is heterogeneously dense. This may lower the sensitivity of mammography. Findings: Analyzed By CAD. There is no suspicious group of microcalcifications or new suspicious mass in either breast. Overall Assessment: Negative, BI-RAD 1 Management: Screening Mammogram of both breasts in 1 year. . Patient should continue monthly self-breast exams. A clinical breast exam by your physician is recommended on an annual basis. This exam should not preclude additional follow-up of suspicious palpable abnormalities. Note on Tanesha scores and lifetime risk: 1. A Tanesha score greater than 3% is considered moderate risk. If this is the case, consider specialist referral to assess eligibility for a risk reducing agent. 2. If overall lifetime risk for the development of breast cancer is 20% or higher, the patient may qualify for future screening with alternating mammogram and breast MRI. Electronically signed and approved by: Yoselin Galindo M.D. Radiologist
== END | disposition home or self-care (01) ==
LOC: RADMAMWWP 13:32
PROVIDERS: ATTEND Family Medicine
DX: Z12.31 Encounter for screening mammogram for malignant neoplasm of breast (principal); Z78.0 Asymptomatic menopausal state
CPT/HCPCS: 77063; 77067

== ENCOUNTER 2023-11-05 08:29 | Inpatient (IN) | payer MEDICARE, OTHER ==
--- NOTE | 2023-11-05 08:51 | ED ---
Fall HPI - General Chief Complaint: Fall Stated Complaint: Fall/Left Hip Pain Time Seen by Provider: 11/05/23 08:40 Source: patient, RN notes reviewed Mode of arrival: wheelchair Limitations: no limitations - History of Present Illness Initial Comments: This is an 82-year-old female who presents to the emergency department for left hip pain after a fall. States that last night around 10 PM she was carrying a basket of laundry when she lost her balance and fell, landing on her left side. Denies hitting her head or any loss of consciousness. Not taking any blood thinners. All of the pain is localized to the left hip and she has had difficulty ambulating as a result. MD Complaint: fall - Related Data Home Medications Medication Instructions Recorded Confirmed Atorvastatin Calcium [Lipitor] 80 mg PO HS 03/18/20 11/05/23 Denosumab [Prolia] 60 mg INJ Q180D 03/18/20 11/05/23 Ferrous Sulfate [Iron (65 MG 325 mg PO DAILY 03/18/20 11/05/23 Elemental)] Montelukast Sodium [Singulair] 10 mg PO HS 03/18/20 11/05/23 Buta/APAP/Caf/Cod 99-972-67-30 1 cap PO QID 11/05/23 11/05/23 [Fioricet w/Cod 20-118-73-30MG] Desloratadine [Clarinex] 5 mg PO DAILY PRN 11/05/23 11/05/23 Ergocalciferol [Vitamin D2 (1250 1,250 mcg PO MO 11/05/23 11/05/23 Mcg = 12613 Iu)] Fluticasone Nasal [place] [Flonase 2 spray EA NOSTRIL DAILY PRN 11/05/23 11/05/23 Nasal [place]] cycloSPORINE 0.05% OPHTH SOLN 1 drop BOTH EYES BID 11/05/23 11/05/23 [Restasis] Allergies Allergy/AdvReac Type Severity Reaction Status Date / Time Penicillins Allergy Rash/Hives Verified 11/05/23 11:14 Review of Systems ROS Statement: Those systems with pertinent positive or pertinent negative responses have been documented in the HPI. ROS Other: All systems not noted in ROS Statement are negative. Past Medical History Past Medical History: Hyperlipidemia History of Any Multi-Drug Resistant Organisms: None Reported Past Surgical History: Tonsillectomy Past Psychological History: No Psychological Hx Reported Smoking Status: Former smoker Past Alcohol Use History: Occasional Past Drug Use History: None Reported General Exam Limitations: physical limitation General appearance: alert, in distress Head exam: Present: atraumatic, normocephalic, normal inspection Respiratory exam: Present: normal lung sounds bilaterally. Absent: respiratory distress, wheezes, rales, rhonchi, stridor Cardiovascular Exam: Present: regular rate, normal rhythm, normal heart sounds. Absent: systolic murmur, diastolic murmur, rubs, gallop, clicks Extremities exam: Present: other (No shortening or rotation of the left lower extremity. 2+ DP and PT pulses.) Neurological exam: Present: alert, oriented X3, CN II-XII intact Psychiatric exam: Present: normal affect, normal mood Skin exam: Present: warm, dry, intact, normal color. Absent: rash Course Vital Signs 11/05/23 11/05/23 11/05/23 08:36 11:00 13:22 Temperature 98.1 F 98.2 F 98.3 F Pulse Rate 74 80 82 Respiratory 18 18 18 Rate Blood Pressure 131/69 146/76 116/69 O2 Sat by Pulse 98 96 96 Oximetry 11/05/23 15:00 Temperature 98 F Pulse Rate 82 Respiratory 18 Rate Blood Pressure 114/64 O2 Sat by Pulse 96 Oximetry Medical Decision Making - Medical Decision Making This is an 82-year-old female who presents to the emergency department for left hip pain after a fall. Was pt. sent in by a medical professional or institution? @ -No Did you speak to anyone other than the patient for history? @ -No Did you review nursing and triage notes? @ -Yes, and I agree, it is accurate with regards to the patient's symptoms. Were old charts reviewed? @ -No Differential Diagnosis? @ -Differential Musculoskeletal: Muscular strain, contusion, ligament sprain, fracture, arthritis, septic arthritis, bursitis, cellulitis, muscle spasm, nerve compression, DVT, arterial occlusion, herpes zoster, electrolyte abnormality, tumor.... This is not meant t o be in all inclusive list EKG interpreted by me (3pts min.)? @ -Not obtained X-rays interpreted by me (1pt min.)? @ -Chest x-ray obtained, my interpretation identifies no localized consolidations or infiltrates. X-ray of the left hip and pelvis obtained. My interpretation identifies a left pubic rami fracture. CT interpreted by me (1pt min.)? @ -CT scan of the pelvis obtained. My interpretation identifies a left-sided pubic fracture. U/S interpreted by me (1pt. min.)? @ -Not obtained What testing was considered but not performed? (CT, X-rays, U/S, labs)? Why? @ -None What meds were considered but not given? Why? @ -None Did you discuss the management of the patient with other professionals? @ -Yes, Dr. Klein, who accepts the patient for admission. Did you reconcile home meds? @ -Yes Was smoking cessation discussed for >3mins.? @ -No Was critical care preformed (if so, how long)? @ -No Were there social determinants of health that impacted care today? How? (Homelessness, low income, unemployed, alcoholism, drug addiction, transportation, low edu. Level, literacy, decrease access to med. care, fdc, rehab)? @ -No Was there de-escalation of care discussed even if they declined? (Discuss DNR or withdrawal of care, Hospice)? @ -No What co-morbidities impacted this encounter? (DM, HTN, Smoking, COPD, CAD, Cancer, CVA, Hep., AIDS, mental health diagnosis, sleep apnea, morbid obesity)? @ -None Was patient admitted / discharged? @ -Admitted. We initially obtained a chest x-ray and x-ray of the left hip and pelvis. This demonstrated a left superior and inferior pubic rami fracture. CT scan of the pelvis was obtained as well to rule out any additional fractures. This revealed a fracture of the ischial ramus and pubic ramus on the left with some lucency in the medullary portion ischial ramus suggestive for pathologic fracture. There were no fractures noted to the femur. We were able to get the patient's pain improved to some extent, however she lives alone and there is concern about her being able to care for herself and ambulate in this compromised state. Patient subsequently admitted to medicine for symptom control and potential rehab placement. Consult placed for orthopedics. CBC and CMP ordered at admission and found to be relatively unremarkable. Undiagnosed new problem with uncertain prognosis? @ -None Drug Therapy requiring intensive monitoring for toxicity (Heparin, Nitro, Insulin, Cardizem)? @ -None Were any procedures done? @ -None Diagnosis/symptom? @ -Fall, ischial ramus fracture, pubic ramus fracture Acute, or Chronic, or Acute on Chronic? @ -Acute Uncomplicated (without systemic symptoms) or Complicated (systemic symptoms)? @ -Uncomplicated Side effects of treatment? @ -None Exacerbation, Progression, or Severe Exacerbation] @ -Not applicable Poses a threat to life or bodily function? @ -Yes, this affects her ability to ambulate This case was discussed in detail with the attending ED physician, Dr. Laurent. Presentation, findings, and treatment plan discussed in detail as well. - Lab Data Result diagrams: 11/05/23 10:59 11/05/23 10:59 Lab Results 11/05/23 11/05/23 Range/Units 10:59 10:59 WBC 9.6 (3.8-10.6) k/uL RBC 4.00 (3.80-5.40) m/uL Hgb 12.4 (11.4-16.0) gm/dL Hct 38.7 (34.0-46.0) % MCV 96.9 (80.0-100.0) fL MCH 30.9 (25.0-35.0) pg MCHC 31.9 (31.0-37.0) g/dL RDW 14.6 (11.5-15.5) % Plt Count 145 L (150-450) k/uL MPV 9.2 Neutrophils % 79 % Lymphocytes % 8 % Monocytes % 9 % Eosinophils % 0 % Basophils % 0 % Neutrophils # 7.6 (1.3-7.7) k/uL Lymphocytes # 0.8 L (1.0-4.8) k/uL Monocytes # 0.9 (0-1.0) k/uL Eosinophils # 0.0 (0-0.7) k/uL Basophils # 0.0 (0-0.2) k/uL Sodium 136 L (137-145) mmol/L Potassium 4.8 (3.5-5.1) mmol/L Chloride 106 (98-107) mmol/L Carbon Dioxide 22 (22-30) mmol/L Anion Gap 8 mmol/L BUN 21 H (7-17) mg/dL Creatinine 0.43 L (0.52-1.04) mg/dL Est GFR (CKD-EPI)AfAm >90 (>60 ml/min/1.73 sqM) Est GFR (CKD-EPI)NonAf >90 (>60 ml/min/1.73 sqM) Glucose 116 H (74-99) mg/dL Calcium 9.1 (8.4-10.2) mg/dL Total Bilirubin 0.8 (0.2-1.3) mg/dL AST 45 H (14-36) U/L ALT 38 H (4-34) U/L Alkaline Phosphatase 85 (38-126) U/L Total Protein 7.2 (6.3-8.2) g/dL Albumin 4.6 (3.5-5.0) g/dL - Radiology Data Radiology results: report reviewed, image reviewed Disposition Clinical Impression: Fall, Left ischial fracture, Pubic ramus fracture Disposition: ADMITTED IP TO THIS HOSP
[2023-11-05] MEDS: MORPHINE SULFATE 4 MG/ML SYRINGE IM STA (08:56)
--- NOTE | 2023-11-05 09:25 | XR ---
EXAMINATION TYPE: XR chest 1V DATE OF EXAM: 11/05/2023 HISTORY: Shortness of breath. COMPARISON: 04/30/2021 TECHNIQUE: Single view of the chest is submitted. FINDINGS: Demonstrated are scattered senescent parenchymal change. There is no evidence for focal infiltrate. The heart is stable. Hilar and mediastinal structures are within normal limits. Degenerative changes are seen of the dorsal spine. IMPRESSION: 1. Chronic changes without evidence for acute pulmonary disease.
--- NOTE | 2023-11-05 09:26 | XR ---
EXAMINATION TYPE: XR Hip LT and AP Pelvis DATE OF EXAM: 11/05/2023 CLINICAL HISTORY: pain TECHNIQUE: AP and frogleg views of the left hip are obtained. COMPARISON: None. FINDINGS: Fracture noted left superior and inferior pubic rami. No additional fracture seen. Left hip joint is intact. IMPRESSION: 1. Fracture noted left superior and inferior pubic rami.
--- NOTE | 2023-11-05 10:31 | CT ---
EXAMINATION TYPE: CT pelvis wo con DATE OF EXAM: 11/05/2023 COMPARISON: 11/05/2023 hip and pelvis x-ray HISTORY: Fall, Fracture on x-ray CT DLP: 281.5 mGycm Automated exposure control for dose reduction was used. Contrast: None Technique: Axial images through millimeters thick sections. Reconstructed images in the coronal and s agittal plane. FINDINGS: There is a fracture of the ischial ramus. Displaced fracture of the pubic ramus is also evident. Find ings may be pathologic with lucency in the marrow. Some expansion of the pubic symphysis may be prese nt on the left. No additional fractures are evident. Femoral heads articulate with the acetabulum. IMPRESSION: 1. FRACTURE OF THE ISCHIAL RAMUS AND PUBIC RAMUS ON THE LEFT. THERE IS SOME LUCENCY WITHIN THE MEDULL JENNIFER PORTION ISCHIO RAMUS SUGGESTIVE FOR PATHOLOGIC FRACTURE.
[2023-11-05] MEDS: MORPHINE SULFATE 4 MG/ML SYRINGE IVP STA (11:14)
[2023-11-05] MEDS ORDERED: NALOXONE 0.4 MG/ML 1 ML VIAL IV PRN (11:25)
[2023-11-05] MEDS ORDERED: KETOROLAC 15 MG/ML 1 ML VIAL IVP PRN (11:25)
[2023-11-05] MEDS ORDERED: MORPHINE SULFATE 4 MG/ML SYRINGE IV PRN (11:25)
[2023-11-05] MEDS ORDERED: FLUTICASONE NASAL 50MCG/SPRAY 16GM BTL EA NOSTRIL PRN (11:26)
[2023-11-05 11:52] LABS: ALT 38 U/L (4-34); African American GFR (CKD) >90 (>60 ml/min/1.73 sqM); Albumin 4.6 g/dL (3.5-5.0); Alkaline Phosphatase 85 U/L (38-126); Anion Gap 8 mmol/L; Calcium 9.1 mg/dL (8.4-10.2); Carbon Dioxide 22 mmol/L (22-30); Chloride 106 mmol/L (98-107); Glucose 116 mg/dL (74-99); Non-African American GFR(CKD) >90 (>60 ml/min/1.73 sqM); Sodium 136 mmol/L (137-145); Total Bilirubin 0.8 mg/dL (0.2-1.3)
[2023-11-05 11:57] LABS: AST 45 U/L (14-36); Potassium 4.8 mmol/L (3.5-5.1); Total Protein 7.2 g/dL (6.3-8.2)
[2023-11-05 12:01] LABS: Basophils % (A) 0 %; Eosinophils % (A) 0 %; HCT 38.7 % (34.0-46.0); HGB 12.4 gm/dL (11.4-16.0); Lymphocytes # (A) 0.8 k/uL (1.0-4.8); Lymphocytes % (A) 8 %; MCH 30.9 pg (25.0-35.0); MCHC 31.9 g/dL (31.0-37.0); MCV 96.9 fL (80.0-100.0); Mean Platelet Volume 9.2; Monocytes # (A) 0.9 k/uL (0-1.0); Monocytes % (A) 9 %; Neutrophils # (A) 7.6 k/uL (1.3-7.7); Neutrophils % (A) 79 %; Platelet Count 145 k/uL (150-450); RDW 14.6 % (11.5-15.5); WBC 9.6 k/uL (3.8-10.6)
[2023-11-05 12:08] LABS: Blood Urea Nitrogen 21 mg/dL (7-17)
[2023-11-05] MEDS: BUTA/APAP/CAF/COD 50-325-40-30 CAP PO SCH (15:10)
--- NOTE | 2023-11-05 16:46 | P.CNOR ---
History of Present Illness - HPI Consult date: 11/05/23 Consult reason: fracture History of present illness: 82 yo female who is well known to me presents to the ED with c/o left hip pain and inability to ambulate after a fall from standing at home on to her left side. She states pain in her groin and hip and pain with ambulation and movement of that hip. Xrays and CT scan done in ED show LC2 Type pelvic fracture. She has a hx of cervical myelopathy for which we were conservatively treating her as she did not want surgery and she states she thinks this is why she fell as she became off balance. She denies any other areas of pain at this time. Denies any BHT or LOC. States she has no f/c/sob/cp/n/v/stuart at this time. Review of Systems 16 point ROS completed and as stated in HPI. All other systems reviewed negative. Past Medical History Past Medical History: Hyperlipidemia History of Any Multi-Drug Resistant Organisms: None Reported Past Surgical History: Tonsillectomy Past Psychological History: No Psychological Hx Reported Smoking Status: Former smoker Past Alcohol Use History: Occasional Past Drug Use History: None Reported Medications and Allergies Home Medications Medication Instructions Recorded Confirmed Type Atorvastatin Calcium [Lipitor] 80 mg PO HS 03/18/20 11/05/23 History Denosumab [Prolia] 60 mg INJ Q180D 03/18/20 11/05/23 History Ferrous Sulfate [Iron (65 MG 325 mg PO DAILY 03/18/20 11/05/23 History Elemental)] Montelukast Sodium [Singulair] 10 mg PO HS 03/18/20 11/05/23 History Buta/APAP/Caf/Cod 07-019-09-30 1 cap PO QID 11/05/23 11/05/23 History [Fioricet w/Cod 11-253-32-30MG] Desloratadine [Clarinex] 5 mg PO DAILY PRN 11/05/23 11/05/23 History Ergocalciferol [Vitamin D2 (1250 1,250 mcg PO MO 11/05/23 11/05/23 History Mcg = 47954 Iu)] Fluticasone Nasal [place] [Flonase 2 spray EA NOSTRIL DAILY PRN 11/05/23 11/05/23 History Nasal [place]] cycloSPORINE 0.05% OPHTH SOLN 1 drop BOTH EYES BID 11/05/23 11/05/23 History [Restasis] Allergies Allergy/AdvReac Type Severity Reaction Status Date / Time Penicillins Allergy Rash/Hives Verified 11/05/23 11:14 Physical Examination Osteopathic Statement: *. No significant issues noted on an osteopathic structural exam other than those noted in the History and Physical/Consult. PHYSICAL EXAMINATION: Vitals: Stable at this time General: Awake, alert, appropriate for age, in no acute distress. HEENT: No unusual neck masses around region of lateral neck triangle, thyroid, supraclavicular groove. Extremities: Skin warm and dry without no acute lesions, coloration, temperature, skin intact, no tenderness or erythema. Integument: Hairy patches: Absent Dorsal skin dimples: Absent Cafe au lait spots: Absent Surgical incisions: on pertaining to the pelvis Palpation: Please see Pain drawing on Intake sheet for further detail. (Tenderness = T, Nontender = NT, Swelling = S, Ecchymosis = E) Findings on Midline and paraspinal palpation and percussion: Cervical: NT Thoracic: NT Lumbar: NT Sacral: tenderness to palpation midline as well as on the left side of the SI joint. Tennis to palpation over the anterior pubic symphysis on the left Special findings: none POSTURAL and MUSCULO-SKELETAL EVALUATION: chin on chest deformity with positive sagittal balance Neck ROM: restricted Lumbar ROM: [Unrestricted in six directions] Shoulder ROM: Symmetric in abduction, ER/IR Hip ROM: Symmetric in abduction, adduction, ER/IR Knee ROM: Symmetric and intact in Flexion / extension Hands: Normal appearing structure L and R Feet: Normal appearing structure L and R VASCULAR STATUS : Wrist Pulses: [2/4 bilateral radial and ulnar] Pedal Pulses: [2/4 bilateral DP and PT] Color: [Normal] Edema: [None] NEUROLOGIC EXAMINATION: Mental Status: Awake and alert, fully oriented, with normal attention, co ncentration and memory, and fluent, appropriate speech. Cranial Nerves: I: Olfactory not tested. II: Visual acuity normal, no visual field deficit noted with confrontation. III,IV: Normal pupillary reflexes & intact extraocular movements without nystagmus. V,: Intact symmetrical facial sensation. VII: Intact symmetrical facial motor movement VIII: Hearing intact. IX,X: Intact gag, swallow, & normal voice. XI: Sternocleidomastoid, trapezius function intact. XII: Tongue midline with normal movements. Special Tests: L'hermitte's Sign: Absent Spurling'Sign: Absent Bilateral Cubital percussion test: Absent Bilateral Henry-Tinel sign - Carpal region: Absent Bilateral Straight Leg Raising: Absent Bilateral Motor Exam (0-5/5, N/T) STRENGTH UPPER EXTREMITY 4+/5 in all major muscle groups of the UE b/l LOWER EXTREMITY 4+]/5 in all major muscle groups of the LE b/l except for left lower extremity which is difficult for him at this time secondary to her fracture and pain in the left hip REFLEXES Upper Extremity: RIGHT 3/4 LEFT [2]/4 Lower Extremity: RIGHT [2]/4 LEFT [2]/4 Pathological Reflexes Millard's: RIGHT present LEFT [Absent] Babinski: RIGHT [Absent] LEFT [Absent] Clonus: RIGHT [None] LEFT [None] SENSORY Pain and LT sense [Intact C5-T1 and L2-S1] Dermatomal deficit [None] Gait and Functional Evaluation: Ambulatory aids: walker Results x-rays and CTs are reviewed. These demonstrate an LC 2 type fracture with a superior and inferior pubic rami fractures on the left with displacement as well as a sacral alar fracture and widening of the SI joint on the left mostly anteriorly. There is no posterior widening. There is no APC type injury. There is osteopenia within the sacrum on the left-hand side as well and fracture line extends through the sacral Felicia and a Enrico type I fashion. No other fractures noted at this time. No hip fractures noted. From last other joints are congruent. Rick 3 changes noted. - Labs Labs: Abnormal Lab Results - Last 24 Hours (Table) 11/05/23 11/05/23 Range/Units 10:59 10:59 Plt Count 145 L (150-450) k/uL Lymphocytes # 0.8 L (1.0-4.8) k/uL Sodium 136 L (137-145) mmol/L BUN 21 H (7-17) mg/dL Creatinine 0.43 L (0.52-1.04) mg/dL Glucose 116 H (74-99) mg/dL AST 45 H (14-36) U/L ALT 38 H (4-34) U/L H & H 11/05/23 Range/Units 10:59 Hgb 12.4 (11.4-16.0) gm/dL Hct 38.7 (34.0-46.0) % Result Diagrams: 11/05/23 10:59 11/05/23 10:59 Assessment and Plan (1) Pelvic ring fracture Current Visit: Yes Status: Acute Priority: High Code(s): S32.810A - MUL TIPLE FX OF PELVIS W STABLE DISRUPT OF PELVIC RING, INIT SNOMED Code(s): 39544396 (2) Sacral fracture, closed Current Visit: Yes Status: Acute Priority: High Code(s): S32.10XA - UNSP FRACTURE OF SACRUM, INIT ENCNTR FOR CLOSED FRACTURE SNOMED Code(s): 010254947 (3) Fall Current Visit: Yes Status: Acute Priority: High Code(s): W19.XXXA - UNSPECIFIED FALL, INITIAL ENCOUNTER SNOMED Code(s): 0599418 (4) Left ischial fracture Current Visit: Yes Status: Acute Priority: High Code(s): S32.602A - UNSP FRACTURE OF LEFT ISCHIUM, INIT FOR CLOS FX SNOMED Code(s): 554341589 (5) Pubic ramus fracture Current Visit: Yes Status: Acute Priority: High Code(s): S32.599A - OTH FRACTURE OF UNSP PUBIS, INIT ENCNTR FOR CLOSED FRACTURE SNOMED Code(s): 9276562814 Plan: - Medical management - 50% weightbearing left lower extremity to tolerance with assist - PT OT for assessment and balance - as she is unable to ambulate due to severe pain in her SI joint or left side would favor SI stabilization with minimal invasive SI joint stabilization and fusion on the left to aid in her recovery and fix the fracture. Discussed this with the patient she is amenable to this. We will attempt conservative care first. -Pain control: Recommend Toradol Tylenol [place] -Meds: [reviewed] -GI ppx: senna, Miralax -DVT PPX: OK for anticoagulation -Hygiene: maintain -Encourage IS 10x/hr
[2023-11-05 19:17] LABS: Appearance,Urine Clear (Clear); Bilirubin,Urine Negative (Negative); Blood,Urine Small (Negative); Color,Urine Colorless; Glucose,Urine (UA) Negative (Negative); Ketones,Urine Negative (Negative); Leukocyte Esterase,Urine Negative (Negative); Mucus,Urine Rare /hpf; Nitrite,Urine Negative (Negative); Protein,Urine Negative (Negative); RBC,Urine 3 /hpf (0-5); Specific Gravity,Urine 1.012 (1.001-1.035); Urobilinogen,Urine <2.0 mg/dL (<2.0); WBC,Urine 1 /hpf (0-5)
[2023-11-05] MEDS: MONTELUKAST 10 MG TAB PO SCH (20:43)
[2023-11-05] MEDS: ATORVASTATIN 80 MG TAB PO SCH (20:43)
[2023-11-05] MEDS: cycloSPORINE 0.05% OPHTH 0.4 ML DROPERETTE BOTH EYES SCH (20:44)
[2023-11-06] MEDS: HYDROcodone/APAP 5-325MG 1 EACH TAB PO PRN (05:58)
[2023-11-06] MEDS: FERROUS SULFATE 325 MG TAB PO SCH (10:42)
--- NOTE | 2023-11-06 11:05 | P.PN ---
Subjective Progress Note Date: 11/06/23 Principal diagnosis: 1. Superior and inferior pubic rami fracture; sacral fracture Patient was seen at bedside this morning lying semirecumbent position. Patient says while resting in bed she is able to control pain. Patient says when she does train get up and bear weight the left lower extremity she does have increasing pain and difficulty with ambulation. Patient says at this time she wants to move forward with conservative measures with use of PT/OT and pain medication over the next couple days. Patient is understanding if she does not improve she is opened surgical intervention in the form of left-sided SI joint fusion. Patient denies any other issues at this time. Objective - Vital Signs Vital signs: Vital Signs Temp 98.3 F 11/06/23 07:19 Pulse 71 11/06/23 07:19 Resp 14 11/06/23 07:19 BP 128/71 11/06/23 07:19 Pulse Ox 98 11/06/23 07:19 FiO2 Intake & Output 11/05/23 11/06/23 11/06/23 18:59 06:59 18:59 Weight 43.998 kg 43.998 kg Other: Voiding Method Bedpan # Voids 3 - Exam Some generalized swelling present along the left hip. Sensation is equal, symmetric, but intact throughout the upper and lower extremities. There is moderate tenderness to palpation over the left SI joint and in left groin region near the fracture. Patient does have limited range of motion in the left hip secondary to pain on that side. Patient does have full range of motion throughout right lower extremity on exam. Patient is full ROM throughout bilateral upper extremities on exam. 5/5 in all major groups in bilateral upper extremities. 4+/5 in right lower extremity. 3/5 in LLE in resisted left hip flexion/extension in left knee flexion extension. Neurovascular status intact bilaterally. Radial pulses intact bilaterally. DP pulses palpable bilaterally. Negative Homans bilaterally. - Labs CBC & Chem 7: 11/05/23 10:59 11/05/23 10:59 Labs: Abnormal Lab Results - Last 24 Hours (Table) 11/05/23 11/05/23 11/05/23 Range/Units 10:59 10:59 10:59 Plt Count 145 L (150-450) k/uL Lymphocytes # 0.8 L (1.0-4.8) k/uL Sodium 136 L (137-145) mmol/L BUN 21 H (7-17) mg/dL Creatinine 0.43 L (0.52-1.04) mg/dL Glucose 116 H (74-99) mg/dL AST 45 H (14-36) U/L ALT 38 H (4-34) U/L Urine Blood Small H (Negative) Urine Mucus Rare H (None) /hpf Assessment and Plan Assessment: 1. Superior and inferior pubic rami fracture; sacral fracture Plan: 1. Superior and inferior pubic rami fracture; sacral fracture - I did discuss the potential treatment options of surgical intervention in the form of left- sided SI fusion versus conservative measures with the use of PT/OT and pain medication. At this time patient would like to move forward with conservative measures and try a PT/OT. Pain medication as needed. 50% weightbearing to the left lower extremity as tolerated with walker. Assistance as needed. We will continue to follow patient during stay in hospital. If patient does not improve with PT/OT and pain does not improve when bearing weight to the left lower extremity, we may move forward with surgical intervention if patient agreeable 2. Appreciate medical management 3. Pain management -Edon; Tylenol; Flexeril 4. GI prophylaxis - senna 5. DVT prophylaxis - mechanical 6. PT/OT - 50% weightbearing left lower extremity with use a walker 7. Encourage incentive spirometer use Time with Patient: Less than 30
--- NOTE | 2023-11-06 16:47 | P.HPIM ---
History of Present Illness H&P Date: 11/06/23 Chief Complaint: Fall/left hip pain 82-year-old female, history of hyperlipidemia, asthma, seasonal allergies, vitamin D deficiency who presents to the emergency department for left hip pain after a fall. States that last night around 10 PM she was carrying a basket of laundry when she lost her balance and fell, landing on her left side. Denies hitting her head or any loss of consciousness. Not taking any blood thinners. All of the pain is localized to the left hip and she has had difficulty ambulating as a result. Blood work completed in ED reveals a WBC of 9.6, hemoglobin of 12.4 and platelet count of 145, sodium 136, potassium 4.8, BUNs/creatinine of 21/0.43 and blood glucose of [address] scan done in ED show LC2 Type pelvic fracture. Review of Systems REVIEW OF SYSTEMS: CONSTITUTIONAL: No fever, no malaise, no fatigue. HEENT: No recent visual problems or hearing problems. Denied any sore throat. CARDIOVASCULAR: No chest pain, orthopnea, PND, no palpitations, no syncope. PULMONARY: No shortness of breath, no cough, no hemoptysis. GASTROINTESTINAL: No diarrhea, no nausea, no vomiting, no abdominal pain. NEUROLOGICAL: No headaches, no weakness, no numbness. HEMATOLOGICAL: Denies any bleeding or petechiae. GENITOURINARY: Denies any burning micturition, frequency, or urgency. MUSCULOSKELETAL/RHEUMATOLOGICAL: Denies any joint pain, swelling, or any muscle pain. ENDOCRINE: Denies any polyuria or polydipsia. The rest of the 14-point review of systems is negative. Past Medical History Past Medical History: Hyperlipidemia, Osteoarthritis (OA) History of Any Multi-Drug Resistant Organisms: None Reported Past Surgical History: Tonsillectomy Past Anesthesia/Blood Transfusion Reactions: No Reported Reaction Past Psychological History: No Psychological Hx Reported Smoking Status: Former smoker Past Alcohol Use History: Occasional Past Drug Use History: None Reported - Past Family History Mother Additional Family Medical History / Comment(s): mental illness Father Family Medical History: Cancer Medications and Allergies Home Medications Medication Instructions Recorded Confirmed Type Atorvastatin Calcium [Lipitor] 80 mg PO HS 03/18/20 11/05/23 History Denosumab [Prolia] 60 mg INJ Q180D 03/18/20 11/05/23 History Ferrous Sulfate [Iron (65 MG 325 mg PO DAILY 03/18/20 11/05/23 History Elemental)] Montelukast Sodium [Singulair] 10 mg PO HS 03/18/20 11/05/23 History Buta/APAP/Caf/Cod 35-968-73-30 1 cap PO QID 11/05/23 11/05/23 History [Fioricet w/Cod 43-619-49-30MG] Desloratadine [Clarinex] 5 mg PO DAILY PRN 11/05/23 11/05/23 History Ergocalciferol [Vitamin D2 (1250 1,250 mcg PO MO 11/05/23 11/05/23 History Mcg = 13378 Iu)] Fluticasone Nasal [place] [Flonase 2 spray EA NOSTRIL DAILY PRN 11/05/23 11/05/23 History Nasal [place]] cycloSPORINE 0.05% OPHTH SOLN 1 drop BOTH EYES BID 11/05/23 11/05/23 History [Restasis] Allergies Allergy/AdvReac Type Severity Reaction Status Date / Time Penicillins Allergy Rash/Hives Verified 11/05/23 11:14 Physical Exam Vitals: Vital Signs Temp Pulse Pulse Resp BP BP BP 11/06/23 07:19 98.3 F 71 14 128/71 11/06/23 07:09 97.9 F 74 17 132/75 11/06/23 01:51 98.0 F 74 16 127/68 11/05/23 17:57 98 F 78 18 112/63 11/05/23 15:00 98 F 82 18 114/64 11/05/23 13:22 98.3 F 82 18 116/69 Pulse Ox 11/06/23 07:19 98 11/06/23 07:09 96 11/06/23 01:51 97 11/05/23 17:57 96 11/05/23 15:00 96 11/05/23 13:22 96 Intake and Output 11/05/23 11/06/23 11/06/23 22:59 06:59 14:59 Other: Voiding Method Bedpan Bedpan # Voids 3 1 Weight 43.998 kg General appearance: alert, in distress Head exam: Present: atraumatic, normocephalic, normal inspection Respiratory exam: Present: normal lung sounds bilaterally. Absent: respiratory distress, wheezes, rales, rhonchi, stridor Cardiovascular Exam: Present: regular rate, normal rhythm, normal heart sounds. Absent: systolic murmur, diastolic murmur, rubs, gallop, clicks Extremities exam: Present: other (No shortening or rotation of the left lower extremity. 2+ DP and PT pulses.) Neurological exam: Present: alert, oriented X3, CN II-XII intact Psychiatric exam: Present: normal affect, normal mood Skin exam: Present: warm, dry, intact, normal color. Absent: rash Results CBC & Chem 7: 11/05/23 10:59 11/05/23 10:59 Labs: Abnormal Lab Results - Last 24 Hours (Table) 11/05/23 11/05/23 11/05/23 Range/Units 10:59 10:59 10:59 Plt Count 145 L (150-450) k/uL Lymphocytes # 0.8 L (1.0-4.8) k/uL Sodium 136 L (137-145) mmol/L BUN 21 H (7-17) mg/dL Creatinine 0.43 L (0.52-1.04) mg/dL Glucose 116 H (74-99) mg/dL AST 45 H (14-36) U/L ALT 38 H (4-34) U/L Urine Blood Small H (Negative) Urine Mucus Rare H (None) /hpf Thrombosis Risk Factor Assmnt - Choose All That Apply Each Risk Factor Represents 3 Points: Age 75 years or older Each Risk Factor Represents 5 Points: Hip, pelvis, or leg fracture (< 1 month) Thrombosis Risk Factor Assessment Total Risk Factor Score: 8 Thrombosis Risk Factor Assessment Level: High Risk Assessment and Plan Assessment: 1. Falls/debility; consult PT/OT 2. Pelvic ring fracture/pubic ramus fracture; patient reports fair pain control; orthopedic surgery consulted 3. Left ischial fracture; patient evaluated by orthopedic surgery and is r ecommended 50% weightbearing left lower extremity; PT/OT for assessment and balance -- Given patient's inability to ambulate due to severe pain in her SI joint on left side, orthopedic surgery recommending SI stabilization with minimally invasive joint stabilization and fusion 4. Mild NYASIA; patient encouraged to increase fluid intake; monitor renal function electrolytes; avoid nephrotoxins 5. Hyperlipidemia; Lipitor 80 mg p.o. nightly 6. Vitamin D deficiency; vitamin D 50,000 units every Thursday 7. Seasonal allergies; Flonase nasal spray 8. COPD/asthma; not in exacerbation; Singulair 10 mg daily; continue with home inhaler therapy DVT prophylaxis; subcu heparin CODE STATUS; full code
[2023-11-06] MEDS: HEPARIN SODIUM,PORCINE 5,000 UNIT/ML 1 ML VIAL SQ SCH (20:58)
--- NOTE | 2023-11-07 09:00 | P.PN ---
Subjective Progress Note Date: 11/07/23 Principal diagnosis: Superior and inferior pubic rami fracture; sacral fracture Patient was seen at bedside this morning lying semirecumbent position. Patient says while resting in bed she is able to control pain. Patient says when she does get up and bear weight on the left lower extremity she does have increasing pain and difficulty with ambulation. Patient says at this time she wants to move forward with conservative measures with use of PT/OT and pain medication over the next couple days. Patient says when she worked with therapy yesterday the pain was little bit better than it was when she initially came to the hospital. Patient is looking forward to working with therapy today. Patient denies any other issues at this time. Objective - Vital Signs Vital signs: Vital Signs Temp 98.7 F 11/07/23 08:00 Pulse 92 11/07/23 08:00 Resp 12 11/07/23 08:00 BP 116/72 11/07/23 08:00 Pulse Ox 95 11/07/23 08:00 FiO2 Intake & Output 11/06/23 11/07/23 11/07/23 18:59 06:59 18:59 Other: Voiding Method Bedpan Toilet Bedside Commode # Voids 1 1 - Exam Some generalized swelling present along the left hip. Sensation is equal, symmetric, but intact throughout the upper and lower extremities. There is moderate tenderness to palpation over the left SI joint and in left groin region near the fracture. Patient does have limited range of motion in the left hip secondary to pain on that side. Patient does have full range of motion throughout right lower extremity on exam. Patient is full ROM throughout bilateral upper extremities on exam. 5/5 in all major groups in bilateral upper extremities. 4+/5 in right lower extremity. 3/5 in LLE in resisted left hip flexion/extension in left knee flexion extension. Neurovascular status intact bilaterally. Radial pulses intact bilaterally. DP pulses palpable bilaterally. Negative Homans bilaterally. - Labs CBC & Chem 7: 11/05/23 10:59 11/05/23 10:59 Assessment and Plan Assessment: 1. Superior and inferior pubic rami fracture; sacral fracture Plan: 1. Superior and inferior pubic rami fracture; sacral fracture - I did discuss the potential treatment options of surgical intervention in the form of left- sided SI fusion versus conservative measures with the use of PT/OT and pain medication. At this time patient would like to move forward with conservative measures and try a PT/OT. Pain medication as needed. 50% weightbearing to the left lower extremity as tolerated with walker. Assistance as needed. We will continue to follow patient during stay in hospital. If patient does not improve with PT/OT and pain does not improve when bearing weight to the left lower extremity, we may move forward with surgical intervention if patient agreeable 2. Appreciate medical management 3. Pain management -[place]; Tylenol; Flexeril 4. GI prophylaxis - senna 5. DVT prophylaxis - mechanical 6. PT/OT - 50% weightbearing left lower extremity with use a walker 7. Encourage incentive spirometer use Time with Patient: Less than 30
[2023-11-07 09:25] LABS: HCT 36.2 % (37.2-46.3); HGB 11.9 g/dL (12.0-15.0); MCH 30.4 pg (27.0-32.0); MCHC 32.9 g/dL (32.0-37.0); MCV 92.6 FL (80.0-97.0); Mean Platelet Volume 11.5 FL (9.5-12.2); NRBC Per 100 WBC 0 X 10*3/uL (0.00-0.01); Platelet Count 157 X 10*3/uL (140-440); RBC 3.91 X 10*6/uL (4.10-5.20); RDW 15.9 % (11.5-14.5); WBC 12.11 X 10*3/uL (4.50-10.00)
[2023-11-07 09:44] LABS: BUN/Creat Ratio 29.33 Ratio (12.00-20.00); Blood Urea Nitrogen 17.6 mg/dL (9.0-27.0); Calcium 8.4 mg/dL (8.7-10.3); Carbon Dioxide 19.7 mmol/L (21.6-31.8); Chloride 103 mmol/L (96-109); Glucose 111 mg/dL (70-110); Potassium 3.9 mmol/L (3.5-5.5); Sodium 136 mmol/L (135-145)
[2023-11-07 09:52] LABS: Basophils # (A) 0.01 X 10*3/uL (0.00-0.10); Basophils % (A) 0.1 %; Eosinophils % (A) 0.8 %; Lymphocytes # (A) 0.93 X 10*3/uL (0.90-5.00); Lymphocytes % (A) 7.7 %; Monocytes # (A) 2.02 X 10*3/uL (0.20-1.00); Monocytes % (A) 16.7 %; Neutrophils # (A) 8.89 X 10*3/uL (1.80-7.70); Neutrophils % (A) 73.4 %; RBC Morphology Normal (Normal)
--- NOTE | 2023-11-07 16:19 | P.PN ---
Subjective Progress Note Date: 11/07/23 82-year-old female, history of hyperlipidemia, asthma, seasonal allergies, vitamin D deficiency who presents to the emergency department for left hip pain after a fall. States that last night around 10 PM she was carrying a basket of laundry when she lost her balance and fell, landing on her left side. Denies hitting her head or any loss of consciousness. Not taking any blood thinners. All of the pain is localized to the left hip and she has had difficulty ambulating as a result. Blood work completed in ED reveals a WBC of 9.6, hemoglobin of 12.4 and platelet count of 145, sodium 136, potassium 4.8, BUNs/creatinine of 21/0.43 and blood glucose of [address] scan done in ED show LC2 Type pelvic fracture. Objective - Vital Signs Vital signs: Vital Signs Temp 98.7 F 11/07/23 08:00 Pulse 92 11/07/23 08:00 Resp 12 11/07/23 08:00 BP 116/72 11/07/23 08:00 Pulse Ox 95 11/07/23 08:00 FiO2 Intake & Output 11/06/23 11/07/23 11/07/23 18:59 06:59 18:59 Intake Total 0 Balance 0 Intake: Oral 0 Other: Voiding Method Bedpan Toilet Toilet Bedside Commode # Voids 1 1 - Exam General appearance: alert, in distress Head exam: Present: atraumatic, normocephalic, normal inspection Respiratory exam: Present: normal lung sounds bilaterally. Absent: respiratory distress, wheezes, rales, rhonchi, stridor Cardiovascular Exam: Present: regular rate, normal rhythm, normal heart sounds. Absent: systolic murmur, diastolic murmur, rubs, gallop, clicks Extremities exam: Present: other (No shortening or rotation of the left lower extremity. 2+ DP and PT pulses.) Neurological exam: Present: alert, oriented X3, CN II-XII intact Psychiatric exam: Present: normal affect, normal mood Skin exam: Present: warm, dry, intact, normal color. Absent: rash - Labs CBC & Chem 7: 11/07/23 03:57 11/07/23 03:57 Labs: Abnormal Lab Results - Last 24 Hours (Table) 06/22/24 06/22/24 Range/Units 03:57 03:57 WBC 12.11 H (4.50-10.00) X 10*3/uL RBC 3.91 L (4.10-5.20) X 10*6/uL Hgb 11.9 L (12.0-15.0) g/dL Hct 36.2 L (37.2-46.3) % RDW 15.9 H (11.5-14.5) % Immature Gran # 0.16 H (0.00-0.04) X 10*3/uL Neutrophils # 8.89 H (1.80-7.70) X 10*3/uL Monocytes # 2.02 H (0.20-1.00) X 10*3/uL Carbon Dioxide 19.7 L (21.6-31.8) mmol/L Anion Gap 13.30 H (4.00-12.00) mmol/L BUN/Creatinine Ratio 29.33 H (12.00-20.00) Ratio Glucose 111 H (70-110) mg/dL Calcium 8.4 L (8.7-10.3) mg/dL Assessment and Plan Assessment: 1. Falls/debility; consult PT/OT 2. Pelvic ring fracture/pubic ramus fracture; patient reports fair pain control; orthopedic surgery consulted 3. Left ischial fracture; patient evaluated by orthopedic surgery and is recommended 50% weightbearing left lower extremity; PT/OT for assessment and balance -- Given patient's inability to ambulate due to severe pain in her SI joint on left side, orthopedic surgery recommending SI stabilization with minimally invasive joint stabilization and fusion 4. Mild NYASIA; patient encouraged to increase fluid intake; monitor renal function electrolytes; avoid nephrotoxins 5. Hyperlipidemia; Lipitor 80 mg p.o. nightly 6. Vitamin D deficiency; vitamin D 50,000 units every Thursday 7. Seasonal allergies; Flonase nasal spray 8. COPD/asthma; not in exacerbation; Singulair 10 mg daily; continue with home inhaler therapy DVT prophylaxis; subcu heparin CODE STATUS; full code
[2023-11-08 09:26] LABS: BUN/Creat Ratio 32.29 Ratio (12.00-20.00); Blood Urea Nitrogen 22.6 mg/dL (9.0-27.0); Calcium 7.9 mg/dL (8.7-10.3); Carbon Dioxide 21.8 mmol/L (21.6-31.8); Chloride 102 mmol/L (96-109); Glucose 108 mg/dL (70-110); Potassium 3.5 mmol/L (3.5-5.5); Sodium 135 mmol/L (135-145)
[2023-11-08] MEDS: ONDANSETRON 4 MG/2 ML VIAL IVP PRN (12:26)
[2023-11-09] MEDS: CYCLOBENZAPRINE 5 MG TAB PO PRN (02:04)
[2023-11-09] MEDS: ERGOCALCIFEROL 1,250 MCG (50,000 IU) CAPSULE PO SCH (09:17)
--- NOTE | 2023-11-09 13:28 | P.PN ---
Subjective Progress Note Date: 11/08/23 82-year-old female, history of hyperlipidemia, asthma, seasonal allergies, vitamin D deficiency who presents to the emergency department for left hip pain after a fall. States that last night around 10 PM she was carrying a basket of laundry when she lost her balance and fell, landing on her left side. Denies hitting her head or any loss of consciousness. Not taking any blood thinners. All of the pain is localized to the left hip and she has had difficulty ambulating as a result. Blood work completed in ED reveals a WBC of 9.6, hemoglobin of 12.4 and platelet count of 145, sodium 136, potassium 4.8, BUNs/creatinine of 21/0.43 and blood glucose of [address] scan done in ED show LC2 Type pelvic fracture. 24-hour interval change 11/08/2023 Patient is seen and evaluated resting in bed staff members at bedside providing care patient reports that she has been able to ambulate to the bathroom; reports fair pain control --Patient has been recommended surgical intervention by orthopedic surgery but continues to favor conservative measures Patient has been evaluated by PT/OT and is recommended skilled rehab -- Case management to work on discharge taken with Objective - Vital Signs Vital signs: Vital Signs Temp 97.4 F L 11/08/23 07:47 Pulse 83 11/08/23 07:47 Resp 16 11/08/23 07:47 BP 120/70 11/08/23 07:47 Pulse Ox 95 11/08/23 07:47 FiO2 Intake & Output 11/07/23 11/08/23 11/08/23 18:59 06:59 18:59 Intake Total 240 Balance 240 Intake: Oral 240 Other: Voiding Method Toilet Toilet Toilet Bedside Commode Bedside Commode # Voids 1 2 1 - Exam General appearance: alert, in distress Head exam: Present: atraumatic, normocephalic, normal inspection Respiratory exam: Present: normal lung sounds bilaterally. Absent: respiratory distress, wheezes, rales, rhonchi, stridor Cardiovascular Exam: Present: regular rate, normal rhythm, normal heart sounds. Absent: systolic murmur, diastolic murmur, rubs, gallop, clicks Extremities exam: Present: other (No shortening or rotation of the left lower extremity. 2+ DP and PT pulses.) Neurological exam: Present: alert, oriented X3, CN II-XII intact Psychiatric exam: Present: normal affect, normal mood Skin exam: Present: warm, dry, intact, normal color. Absent: rash - Labs CBC & Chem 7: 11/07/23 03:57 11/08/23 05:35 Labs: Abnormal Lab Results - Last 24 Hours (Table) 11/08/23 Range/Units 05:35 BUN/Creatinine Ratio 32.29 H (12.00-20.00) Ratio Calcium 7.9 L (8.7-10.3) mg/dL Assessment and Plan Assessment: 1. Falls/debility; consult PT/OT 2. Pelvic ring fracture/pubic ramus fracture; patient reports fair pain control; orthopedic surgery consulted 3. Left ischial fracture; patient evaluated by orthopedic surgery and is recommended 50% weightbearing left lower extremity; PT/OT for assessment and balance -- Given patient's inability to ambulate due to severe pain in her SI joint on left side, orthopedic surgery recommending SI stabilization with minimally invasive joint stabilization and fusion 4. Mild NYASIA; patient encouraged to increase fluid intake; monitor renal function electrolytes; avoid nephrotoxins 5. Hyperlipidemia; Lipitor 80 mg p.o. nightly 6. Vitamin D deficiency; vitamin D 50,000 units every Thursday 7. Seasonal allergies; Flonase nasal spray 8. COPD/asthma; not in exacerbation; Singulair 10 mg daily; continue with home inhaler therapy DVT prophylaxis; subcu heparin CODE STATUS; full code
--- NOTE | 2023-11-10 14:03 | PN ---
PROGRESS NOTE SUBJECTIVE: She fell, pelvic and left ischial fracture. PT OT is involved. She wants to go to [facility] for rehab. OBJECTIVE: VITAL SIGNS: Stable, afebrile. CARDIOVASCULAR: S1, S2. LUNGS: Clear. GI: Soft. Dr. Hurst was consulted for her cervical injury, which was a cervical collar and see her outpatient PT, OT. Possibly get into [facility]. Continue current medications. Prognosis guarded. MMODL / IJN: [id number] /
--- NOTE | 2023-11-10 17:49 | P.CONS ---
History of Present Illness - Reason for Consult Consult date: 11/10/23 Rehab needs - History of Present Illness PMR Consult Ms. Blancas is a pleasant, single, right handed women who lives alone in a senior apt at [facility], no steps to enter but does have an incline. 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 Has minimal support. She has a past medical history of hyperlipidemia, asthma, seasonal allergies, vitamin D deficiency who presents to the emergency department for left hip pain after a fall. States that night before admission around 10 PM she was carrying a basket of laundry when she lost her balance and fell, landing on her left side. Denies hitting her head or any loss of consciousness. Not taking any blood thinners. All of the pain is localized to the left hip and she has had difficulty ambulating as a result. Blood work completed in ED reveals a WBC of 9.6, hemoglobin of 12.4 and platelet count of 145, sodium 136, potassium 4.8, BUNs/creatinine of 21/0.43 and blood glucose of [address] scan done in ED show LC2 Type pelvic fracture. 24-hour interval change 11/08/2023 Patient is seen and evaluated resting in bed staff members at bedside providing care patient reports that she has been able to ambulate to the bathroom; reports fair pain control --Patient has been recommended surgical intervention by orthopedic surgery but continues to favor conservative measures Patient has been evaluated by PT/OT and is recommended skilled rehab -- Case management to work on discharge 11/10/23: PMR consulted for rehab needs. Patient walking back from bathroom with walker and staff standing by to assist. She notes has history of torticollis, having some left hip pain, has occasional sinus DAI, poor balance. Denies CP, SOB, abdominal pain. With therapies was Supervision for mobility with RW, transfers; min A bathing, mod A LE dressing. Review of Systems + per above, o/w all systems reviewed negative Past Medical History Past Medical History: Hyperlipidemia, Osteoarthritis (OA) History of Any Multi-Drug Resistant Organisms: None Reported Past Surgical History: Tonsillectomy Past Anesthesia/Blood Transfusion Reactions: No Reported Reaction Past Psychological History: No Psychological Hx Reported Smoking Status: Former smoker Past Alcohol Use History: Occasional Past Drug Use History: None Reported - Past Family History Mother Additional Family Medical History / Comment(s): mental illness Father Family Medical History: Cancer Medications and Allergies Home Medications Medication Instructions Recorded Confirmed Type Atorvastatin Calcium [Lipitor] 80 mg PO HS 03/18/20 11/05/23 History Denosumab [Prolia] 60 mg INJ Q180D 03/18/20 11/05/23 History Ferrous Sulfate [Iron (65 MG 325 mg PO DAILY 03/18/20 11/05/23 History Elemental)] Montelukast Sodium [Singulair] 10 mg PO HS 03/18/20 11/05/23 History Buta/APAP/Caf/Cod 31-610-15-30 1 cap PO QID 11/05/23 11/05/23 History [Fioricet w/Cod 78-370-49-30MG] Desloratadine [Clarinex] 5 mg PO DAILY PRN 11/05/23 11/05/23 History Ergocalciferol [Vitamin D2 (1250 1,250 mcg PO MO 11/05/23 11/05/23 History Mcg = 28212 Iu)] Fluticasone Nasal [place] [Flonase 2 spray EA NOSTRIL DAILY PRN 11/05/23 11/05/23 History Nasal [place]] cycloSPORINE 0.05% OPHTH SOLN 1 drop BOTH EYES BID 11/05/23 11/05/23 History [Restasis] Allergies Allergy/AdvReac Type Severity Reaction Status Date / Time Penicillins Allergy Rash/Hives Verified 11/05/23 11:14 Physical Exam Vitals: Vital Signs Temp Pulse Pulse Resp BP Pulse Ox 11/10/23 14:00 98.0 F 62 16 94/57 95 11/10/23 07:16 97.8 F 65 18 97/58 97 11/10/23 02:24 98.1 F 68 16 107/66 100 11/09/23 20:00 78 81 18 11/09/23 19:40 98.0 F 78 18 97/60 97 Intake and Output 11/10/23 11/10/23 11/10/23 06:59 14:59 22:59 Other: Voiding Method Toilet # Voids 3 Gen: NAD, alert HEENT: PERRLA, EOMI. Wears a soft neck brace. Lungs: Non labored respirations Heart: Regular rate Abd: soft nt, nnd Neuro: A&O x4, speech fluent, CN 2-12 intact MMT 4+/5 bilateral UE/LE except decreased left hip flexion. SILT UT/LE SKin: Warm and dry Ext: no significant LE edema, No calf TTP Results CBC & Chem 7: 11/07/23 03:57 11/08/23 05:35 Assessment and Plan Assessment: Gait impairment s/p fall - continue therapies. Pelvic ring fracture/pubic ramus fracture; patient reports fair pain control; orthopedic surgery consulted Left ischial fracture; patient evaluated by orthopedic surgery and is recommended 50% weightbearing left lower extremity -- Given patient's inability to ambulate due to severe pain in her SI joint on left side, orthopedic surgery recommending SI stabilization with minimally invasive joint stabilization and fusion Mild NYASIA; patient encouraged to increase fluid intake; monitor renal function electrolytes; avoid nephrotoxins Hyperlipidemia; Lipitor 80 mg p.o. nightly Vitamin D deficiency; vitamin D 50,000 units every Thursday Seasonal allergies; Flonase nasal spray COPD/asthma; not in exacerbation; Singulair 10 mg daily; continue with home inhaler therapy DVT prophylaxis; subcu heparin Recommendations: - per your medical management - continue PT/OT Unfortunately, too high functioning for IPR, but given lives alone and WB status, would be appropriate for [facility].
--- NOTE | 2023-11-10 21:55 | PN ---
PROGRESS NOTE SUBJECTIVE: for a week or 2. She has taken Fioricet with codeine. I gave her a script for few days, she goes from tomorrow. Continue current treatment. Prognosis guarded. Ambulate as tolerated. Her pain is much improved. Her white counts with recheck in the morning are 12.1, 11.9, sodium 135, potassium 3.5. She is alert and oriented x3, giving appropriate answers. Cardiovascular: S1, S2. Lungs clear. GI, soft. [facility] [place] tomorrow codeine which she has taken for pain. She will go to rehab for a week or 2. MMODL / IJN: [id number] /
[2023-11-11 09:01] LABS: Basophils % (A) 1 %; Eosinophils % (A) 1 %; HCT 36.7 % (34.0-46.0); HGB 11.7 gm/dL (11.4-16.0); Lymphocytes # (A) 1.1 k/uL (1.0-4.8); Lymphocytes % (A) 23 %; MCH 30.2 pg (25.0-35.0); MCHC 31.8 g/dL (31.0-37.0); Mean Platelet Volume 8.3; Monocytes # (A) 0.4 k/uL (0-1.0); Monocytes % (A) 9 %; Neutrophils # (A) 2.8 k/uL (1.3-7.7); Neutrophils % (A) 62 %; Platelet Count 177 k/uL (150-450); RBC 3.86 m/uL (3.80-5.40); RDW 14.2 % (11.5-15.5); WBC 4.6 k/uL (3.8-10.6)
[2023-11-11 09:24] LABS: ALT 94 U/L (4-34); AST 64 U/L (14-36); African American GFR (CKD) >90 (>60 ml/min/1.73 sqM); Albumin 3.3 g/dL (3.5-5.0); Albumin/Globulin Ratio 1.3; Alkaline Phosphatase 162 U/L (38-126); Anion Gap 7 mmol/L; Blood Urea Nitrogen 19 mg/dL (7-17); Calcium 8.1 mg/dL (8.4-10.2); Carbon Dioxide 23 mmol/L (22-30); Chloride 109 mmol/L (98-107); Globulin 2.5 g/dL; Glucose 145 mg/dL (74-99); Non-African American GFR(CKD) >90 (>60 ml/min/1.73 sqM); Potassium 3.2 mmol/L (3.5-5.1); Sodium 139 mmol/L (137-145); Total Bilirubin 0.4 mg/dL (0.2-1.3); Total Protein 5.8 g/dL (6.3-8.2)
[2023-11-11] MEDS: POTASSIUM CHLORIDE ER 20 MEQ TAB.ER PO SCH (11:44)
[2023-11-11] MEDS ORDERED: FLUTICASONE NASAL 50MCG/SPRAY 16GM BTL EA NOSTRIL PRN ×2 (17:25→17:27)
[2023-11-12] MEDS: LORATADINE 10 MG TAB PO PRN (10:20)
[2023-11-12] MEDS: ACETAMINOPHEN TAB 325 MG TAB PO PRN (10:20)
[2023-11-12 13:43] VITALS: BMI 19.5
--- NOTE | 2023-11-13 01:37 | PN ---
PROGRESS NOTE SUBJECTIVE: Stefani Blancas is waiting for rehab. She is to go to [facility]. She is waiting for treatment, possibly get approval from insurance to go to rehab center. She is able to ambulate a few feet, may be 10 to 20. She is able to lift her left leg which is still very weak due to the left hip ischial fracture. Continue PT, OT. OBJECTIVE: VITAL SIGNS: Improved. CARDIOVASCULAR: S1, S2. LUNGS: Clear. GI: Soft. NEUROLOGIC: Alert and oriented x3. MUSCULOSKELETAL: Palpation on the left hip. Strength is about 30% on her left leg extension and flexion. Prognosis guarded. Continue PT, OT. Possible rehab placement. It does not appear she will be able to take care of herself at home. MMMAR / OSMANN: [id number] /
[2023-11-13 09:36] VITALS: BP 121/69; PULSE 69; RESP 16; TEMP 97.6
--- NOTE | 2023-11-13 14:49 | DS ---
DISCHARGE SUMMARY DISCHARGE DIAGNOSES: Fall, left ischial fracture, pelvic ring fracture, pubic rami fracture, allergic rhinitis, osteoporosis, migraines. MEDICINES: 1. K-Dur 20 mEq daily. 2. Singulair 10 mg daily. 3. Iron sulfate 325 daily. 4. Lipitor 80 daily. 5. Prolia 60 mg every 6 months. 6. Fioricet. 7. Codeine 1 tab q.i.d. p.r.n. 8. 5 mg daily. 9. Cyclosporine 0.05% to both eyes b.i.d. 10.Flonase nasal spray daily. 11. mcg p.o. once a week. 12.Lipitor 80 q.h.s. 13.Singulair 10 mg daily. PROGNOSIS: Guarded. CONDITION: Stable. DIET: As tolerated. She is going to rehab due to a fall at home. She has multiple fractures mentioned above and the left ischial fracture, pelvic ring fracture, pubic rami fractures, difficulty with pain in her left hip. She takes Fioricet with Codeine for migraines and headaches and for her pain. She had PT OT for her left leg weakness due to left hip pain, but she has been ambulating 50 feet. She will go to rehab for a week or 2. Follow up with her when she gets out of the rehab center. Condition stable, prognosis guarded. Diet as tolerated. GHAZAL / PABLO: [id number] /
== END 2023-11-13 15:54 | DRG 536 ==
LOC: EC 08:29 → 4SSUR 11:15
PROVIDERS: ADMIT Family Medicine; ATTEND Family Medicine
DX: S32.810A Multiple fractures of pelvis with stable disruption of pelvic ring, initial encounter for closed fracture (principal); S32.10XA Unspecified fracture of sacrum, initial encounter for closed fracture; N17.9 Acute kidney failure, unspecified; E78.5 Hyperlipidemia, unspecified; E55.9 Vitamin D deficiency, unspecified; J30.81 Allergic rhinitis due to animal (cat) (dog) hair and dander; J44.9 Chronic obstructive pulmonary disease, unspecified; Z91.81 History of falling; G43.909 Migraine, unspecified, not intractable, without status migrainosus; M19.90 Unspecified osteoarthritis, unspecified site; M81.0 Age-related osteoporosis without current pathological fracture; W01.0XXA Fall on same level from slipping, tripping and stumbling without subsequent striking against object, initial encounter; Y92.009 Unspecified place in unspecified non-institutional (private) residence as the place of occurrence of the external cause; Z79.899 Other long term (current) drug therapy; Z88.0 Allergy status to penicillin
CPT/HCPCS: 36415; 71045; 72192; 73502; 80048; 80053; 81001; 85025; 96372; 96374; 99285

== ENCOUNTER → 2024-02-10 | Outpatient (CLI) | payer MEDICARE, OTHER ==
[2024-02-10 14:08] VITALS: BP 126/75; PULSE 70; RESP 16; TEMP 97.1
--- NOTE | 2024-02-10 15:34 | P.PAINPG ---
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 Pt states pain level is provoked at 6 /10 in intensity, constant, localized in the mid cervical spine, predominantly axial, tight in character w occasional shooting pain towards the R side of neck. Pain is provoked by cold weather. Pain is alleviated by PT x 2 wks which pt is currently in , heat, medications (Fioricet, Tyl), manual massage, use of a cervical collar, repositioning and rest . PMH: OA, Hyperlipidemia PSH: Tonsillectomy SH: Former tobacco user, Occ ETOH use, No illicit drug use FH: Mo- Mental Illness. Fa- [place] All: See list Meds: See list REVIEW OF ORGAN SYSTEMS: CONSTITUTIONAL: No fevers or chills. No recent weight loss. NEUROLOGICAL: + numbness and tingling along the distal extremities. No seizure disorders or headaches. MUSCULOSKELETAL: + pain PSYCHIATRIC: Denies current depression or suicidal thoughts. Physical Examinations : Constitutional : Cooperative , not in acute distress . Neurologic : Cranial nerve II to XII intact. No focal neurological deficits. Psychiatric : alert & oriented x 3. Matching mood & appropriate affect. Judgment & insight intact. Musculoskeletal : Cervical Spine Motor strength in the deltoid and biceps: Normal right side. Normal Left side Motor strength biceps and the wrist extensors: Normal right side . Normal left side Motor strength in the triceps muscle: Normal right side. Normal left side Deep tendon reflexes: Normal at the biceps. Normal at Brachioradialis. Normal at triceps Vertebral body tenderness to deep palpation over Cervical facet loading test: positive bilaterally C3-C4/ C4-C5 Spurling test: positive bilaterally Neck distraction test: positive bilaterally Osmany sign: positive bilaterally Lumbar spine Motor strength lower extremities ,thigh and legs 5/5 Right side , 5/5 Left side Deep tendon reflexes : Normal Knee Jerk. Normal Ankle Jerk Vertebral body tenderness over Segal Test positive Lumbar facet Loading Test: positive Right / positive Left Range of motion of the lumbar spine Flexion 30 degrees, extension 10 degrees Straight Leg Raise test: Left/ Right positive at degrees Sunita test: positive right / positive left. Severe tenderness over the Sacroiliac joint on the Right / Left sides Paulette test: positive bilaterally Seated flexion test: positive bilaterally. Sacral spine : Severe tenderness over the Sacroiliac joint: right side / left side Range of motion: Flexion of the lumbar spine <60 degrees Range of motion: Extension of the lumbar spine <20 degrees Gaenslen's Test positive Sunita test: positive right side / left side Thigh Thrust Test Sacral Thrust Test Imaging: MRI non contrast cervical spine from 04/06/22 reviewed Assessment/ Plan : Cervical radiculopathy Recommendation of BL MBB C3-C4/ C4-C5 #1. Risks, benefits of procedure discussed and patient verbalized understanding. Admits to anti- coagulant use or medical history of diabetes. Protocol for discontinuation/ continuation of medications yair procedure discussed. Minimal anesthesia provided, if clinically indicated, consisting of Versed and Fentanyl. All questions answered. I have spent greater than 30 minutes on patient care today. Dr Crandall was available by phone for the evaluation of this patient. The time was used to review the medical records including relevant urine studies and Prescription history (MAPs), review of the available imaging, evaluation and examination of the patient, coordination of care with the medical staff and if applicable r eferring physicians, as well as creation of the medical record Home Medications: Ambulatory Orders Atorvastatin Calcium [Lipitor] 80 mg PO HS 03/18/20 Denosumab [Prolia] 60 mg INJ Q180D 03/18/20 Ferrous Sulfate [Iron (65 MG Elemental)] 325 mg PO DAILY 03/18/20 Montelukast Sodium [Singulair] 10 mg PO HS 03/18/20 Desloratadine [Clarinex] 5 mg PO DAILY PRN 11/05/23 Ergocalciferol [Vitamin D2 (1250 Mcg = 78035 Iu)] 1,250 mcg PO MO 11/05/23 Fluticasone Nasal [place] [Flonase Nasal [place]] 2 spray EA NOSTRIL DAILY PRN 11/05/23 cycloSPORINE 0.05% OPHTH SOLN [Restasis] 1 drop BOTH EYES BID 11/05/23 [place]/APAP/Caf/Cod 02-024-00-30 [Fioricet w/Cod [id number]] 1 cap PO QID #12 cap 11/13/23 Potassium Chloride ER [K-Dur 20] 20 meq PO DAILY tab 11/13/23 Controlled Substance Measures - Controlled Substance Measures Is patient prescribed a controlled substance at discharge?: No
== END ==
LOC: PNWHC3 12:50
PROVIDERS: ATTEND Specialist
DX: M54.2 Cervicalgia
CPT/HCPCS: 99211

== ENCOUNTER 2024-03-03 11:52 | Day surgery (SDC) | payer MEDICARE, OTHER ==
[2024-03-03] MEDS: IV FLUID CONTINUATION 1,000 ML IV ONE ×3 (12:05→13:55)
[2024-03-03 12:15] VITALS: TEMP 98.5
[2024-03-03 12:27] LABS: Glucose,Whole Blood 83 mg/dL (70-110)
[2024-03-03] MEDS: LACTATED RINGERS 1,000 ML IV SCH (12:30)
[2024-03-03] MEDS ORDERED: fentaNYL (PF) 50 MCG/ML 2 ML AMP ONE (12:45)
[2024-03-03] MEDS ORDERED: ROPIVACAINE 5MG/ML 20ML VIAL ONE (12:45)
[2024-03-03] MEDS ORDERED: MIDAZOLAM 2 MG/2 ML VIAL ONE (12:45)
--- NOTE | 2024-03-03 13:20 | P.PCN ---
Date of Procedure: 03/03/24 Procedure(s) Performed: PREOPERATIVE DIAGNOSIS: 1-Cervical Spondylosis with Facet Arthropathy.without myelopathy. 2-cervical degenerative disc disease POSTOPERATIVE DIAGNOSIS:1-cervical spondylosis with facet arthropathy without myelopathy. 2-cervical degenerative disc disease PROCEDURES: Diagnostic bilateral C3, C4 , C5 medial branch blocks, with fluoroscopic guidance(fluoroscopy images available in radiology department ) ( to target the facet joint at bilateral C3-4 , C4- 5 )#1st ANESTHESIA: moderate sedation with Versed 1 mg , and fentanyl 50 micrograms (sedation started at 1245, ended at 1306 ) EBL: Minimal PROCEDURE INDICATION: The patient with neck pain secondary to cervical arthropathy unresponsive to more conservative treatments. PROCEDURE DESCRIPTION / TECHNIQUE: The patient was seen and identified in the preoperative area. Risks, benefits, complications, and alternatives were discussed with the patient, the patient agreed to proceed with the procedure and signed the consent. IV was started. Vital signs remained stable throughout the procedure. Patient was taken to the OR and time out was completed. The patient was placed in the prone position on the procedure table. A pillow was placed under the patients chest to increase the cervical interlaminar space. The cervical area was prepped and draped in the usual sterile fashion. Critical pause was taken. Vital signs were closely monitored during the procedure. Conscious sedation was used during the procedure to decrease patients anxiety. Using cross-table lateral fluoroscopy, the centroid of the trapezoid of right C3, C4 , C5 was identified, marked, and localized with 1% lidocaine 1 ml at each level for skin and Sub Q infiltrations . Subsequently, a 22 G 3 spinal needle was advanced guided by fluoroscopy to the centroid of the trapezoid of Right C3, C4 , C5. [place] tip position was confirmed at the centroid of the trapezoids of Right C3 , C4 , C5 with anteroposterior fluoroscopy. Subsequently, 1.5 ml of preservative-free Ropivacaine 0.5% and half ml was injected after negative aspiration for blood and CSF. [place] was then removed intact the same procedure was repeated at the left C3 , C4 , C5 levels. COMPLICATIONS: No acute complications. COMMENTS: DISPOSITION / PLANS: The patient was placed in a supine position and transferred to the recovery area in a stable condition for observation and was discharged from the recovery room after meeting discharge criteria. Home discharge instructions given to the patient by the staff. The patient was reexamined prior to discharge. The patient will schedule a follow up in the clinic in 1-2 weeks.
[2024-03-03 13:57] VITALS: BP 121/72; PULSE 65; RESP 18
--- NOTE | 2024-03-03 14:56 | FL ---
EXAMINATION TYPE: FL guided pain mgmt statistic DATE OF EXAM: 03/03/2024 HISTORY: Fluoroscopy time Total dose area product (DAP) in uGy*m?, mGy*cm? (or similar): 0.2848 IMPRESSION: 1. Fluoroscopy time. [facility], , 03/03/2024 2:14 PM
== END 2024-03-03 14:07 | disposition home or self-care (01) ==
LOC: ORPAIN 11:52
PROVIDERS: ATTEND Specialist
DX: M47.812 Spondylosis without myelopathy or radiculopathy, cervical region
CPT/HCPCS: 99152

== ENCOUNTER → 2024-03-17 | Outpatient (CLI) | payer MEDICARE ==
[2024-03-17 13:28] VITALS: BP 117/67; PULSE 73; RESP 18; TEMP 97.8
--- NOTE | 2024-03-21 07:41 | P.PAINPG ---
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 Pt states she experienced 80 % pain relief x 6 hrs s/p procedure. Pt states pain level is provoked at 6 /10 in intensity, constant, localized in the mid cervical spine, predominantly axial, tight in character w occasional shooting pain towards the R side of neck. Pain is provoked by cold weather. Pain is alleviated by PT x 2 wks which pt is currently in , heat, medications, manual massage, use of a cervical collar, repositioning and rest . Interventional procedures include BL MBB C3-C4/ C4-C5 x1 Medications include Fioricet, Tyl REVIEW OF ORGAN SYSTEMS: CONSTITUTIONAL: No fevers or chills. No recent weight loss. NEUROLOGICAL: + numbness and tingling along the distal extremities. No seizure disorders or headaches. MUSCULOSKELETAL: + pain PSYCHIATRIC: Denies current depression or suicidal thoughts. Physical Examinations : Constitutional : Cooperative , not in acute distress . Neurologic : Cranial nerve II to XII intact. No focal neurological deficits. Psychiatric : alert & oriented x 3. Matching mood & appropriate affect. Judgment & insight intact. Musculoskeletal : Cervical Spine Motor strength in the deltoid and biceps: Normal right side. Normal Left side Motor strength biceps and the wrist extensors: Normal right side . Normal left side Motor strength in the triceps muscle: Normal right side. Normal left side Deep tendon reflexes: Normal at the biceps. Normal at Brachioradialis. Normal at triceps Vertebral body tenderness to deep palpation over Cervical facet loading test: positive bilaterally C3-C4/ C4-C5 Spurling test: positive bilaterally Neck distraction test: positive bilaterally Osmany sign: positive bilaterally Lumbar spine Motor strength lower extremities ,thigh and legs 5/5 Right side , 5/5 Left side Deep tendon reflexes : Normal Knee Jerk. Normal Ankle Jerk Vertebral body tenderness over Segal Test positive Lumbar facet Loading Test: positive Right / positive Left Range of motion of the lumbar spine Flexion 30 degrees, extension 10 degrees Straight Leg Raise test: Left/ Right positive at degrees Sunita test: positive right / positive left. Severe tenderness over the Sacroiliac joint on the Right / Left sides Gaenslen test: positive bilaterally Seated flexion test: positive bilaterally. Sacral spine : Severe tenderness over the Sacroiliac joint: right side / left side Range of motion: Flexion of the lumbar spine <60 degrees Range of motion: Extension of the lumbar spine <20 degrees Gaenslen's Test positive Sunita test: positive right side / left side Thigh Thrust Test Sacral Thrust Test Imaging: MRI non contrast cervical spine from 04/06/22 reviewed Assessment/ Plan : Cervical radiculopathy Recommendation of BL MBB C3-C4/ C4-C5 #2. May benefit from R Sternocleidomastoid TPI at next visit. Risks, benefits of procedure discussed and patient verbalized understanding. Admits to anti- coagulant use or medical history of diabetes. Protocol for discontinuation/ continuation of medications yair procedure discussed. Minimal anesthesia provided, if clinically indicated, consisting of Versed and Fentanyl. All questions answered. I have spent greater than 30 minutes on patient care today. Dr Crandall was available by phone for the evaluation of this patient. The time was used to review the medical records including relevant urine studies and Prescription history (MAPs), review of the available imaging, evaluation and examination of the patient, coordination of care with the medical staff and if applicable referring physicians, as well as creation of the medical record - Pain Location Neck Non-Pharmacological Interventions: Physical Therapy, Position/Reposition Pharmacological Interventions: Block, Epidural PQRS Narrative: Hx Alcohol Use (MH) No Home Medications: Ambulatory Orders Atorvastatin Calcium [Lipitor] 80 mg PO HS 03/18/20 Denosumab [Prolia] 60 mg INJ Q180D 03/18/20 Ferrous Sulfate [Iron (65 MG Elemental)] 325 mg PO DAILY 03/18/20 Montelukast Sodium [Singulair] 10 mg PO HS 03/18/20 Ergocalciferol [Vitamin D2 (1250 Mcg = 35542 Iu)] 1,250 mcg PO MO 11/05/23 Fluticasone Nasal [place] [Flonase Nasal [place]] 2 spray EA NOSTRIL DAILY PRN 11/05/23 cycloSPORINE 0.05% OPHTH SOLN [Restasis] 1 drop BOTH EYES BID 11/05/23 [place]/APAP/Caf/Cod [id number] [Fioricet w/Cod [id number]] 1 cap PO QID #12 cap 11/13/23 Potassium Chloride ER [K-Dur 20] 20 meq PO DAILY tab 11/13/23 traMADol HCL 50 mg PO Q12H 02/29/24 Controlled Substance Measures - Controlled Substance Measures Is patient prescribed a controlled substance at discharge?: No
== END ==
LOC: PNWHC3 13:00
PROVIDERS: ATTEND Specialist
DX: M54.12 Radiculopathy, cervical region (principal); Z88.0 Allergy status to penicillin
CPT/HCPCS: 99211